=== PATIENT | male | born 1980 | race African-American/Black ===

== ENCOUNTER 2016-12-08 21:01 | Inpatient (IN) | payer OTHER ==
[~2016-12-08] VITALS: Ht 177.8 cm; Wt 93.0 kg
[~2016-12-08 21:01] MED LIST: FLUO10CA48 PO; OLAN-102 PO
[2016-12-08] MEDS ORDERED: OLAN1TAB5 PO (21:25)
[2016-12-08 21:44] LABS: BASO % 0.3 %; BASO ABS # 0.02 K/uL (0-0.2); COMPLETE YES; EOS % 1.9 %; HEMATOCRIT 39.2 % (42-52); IG% 0.2 %; LYMPH % 35.5 %; LYMPH ABS # 2.26 K/uL (1.2-3.4); MEAN CELL VOLUME 90.7 fL (80-100); MEAN CORPUSCULAR HEMOGLOBIN 30.8 pg (25-34); MEAN CORPUSCULAR HGB CONC 33.9 g/dl (32-36); MEAN PLATELET VOLUME 10.7 fL (7.4-10.4); MONO % 4.9 %; NEUT % 57.2 %; PLATELET COUNT 246 K/uL (130-400); RED BLOOD COUNT 4.32 M/uL (4.7-6.1); WHITE BLOOD COUNT 6.37 K/uL (4.8-10.8)
[2016-12-08 22:05] LABS: ACETAMINOPHEN < 2 ug/ml (10-30); BUN/CREATININE RATIO 10.2 (10-20); CALCIUM 9.2 mg/dl (8.5-10.1); CREATININE 2.5 mg/dl (0.60-1.40); POTASSIUM 4.1 mmol/L (3.5-5.1)
[2016-12-08 22:16] LABS: ALB/GLOB RATIO 0.9 (0.9-2); THYROID STIMULATING HORMONE 1.95 uIu/ml (0.300-4.500)
[2016-12-08 22:30] LABS: LITHIUM 0.3 mMOL/L (0.6-1.2)
[2016-12-08 22:53] LABS: MANUAL MICROSCOPIC REQUIRED? YES; URINE APPEARANCE CLEAR (CLEAR); URINE BILIRUBIN NEG (NEG); URINE COLOR YELLOW; URINE NITRITE NEG (NEG); UROBILINOGEN NEG (NEG)
[2016-12-08 23:01] LABS: REVIEW REQ? NO
[2016-12-08 23:03] LABS: BENZODIAZEPINE, URINE NEG (NEG); COCAINE,URINE NEG (NEG); PHENCYCLIDINE, URINE NEG (NEG)
[2016-12-08 23:12] LABS: URINE BACTERIA NEG (NEG); URINE RBC 0-4 /hpf (0-4)
[2016-12-08 23:14] LABS: ZZUR CULT IF INDIC CLEAN CATCH NO
[2016-12-08] MEDS ORDERED: SODIUM CHLORIDE 0.9% 1000ML 1,000 ML IV STA (23:52)
--- NOTE | 2016-12-09 00:01 | EMERGENCY ROOM VISIT NOTE ---
History Report prepared by Scribe: Amarilis Kwok Under the Supervision of: Dr. Jesse Kaba D.O. First contact with patient: 21:38 Chief Complaint: MENTAL HEALTH EVALUATION Stated Complaint: 302 History of Present Illness The patient is a 36 year old male who presents to the Emergency Room via police for a mental health evaluation following worsening suicidal thoughts and hearing voices with onset 1.5 hours ago. The patient states that he has been hearing voices. He states that the voices have told him to jump off of a roof. The patient states that he was arguing with his this evening when his anxiety became worse and the voices became louder. The patient hears mumbles and screaming, both male and female voices. The patient states that he has heard these voices before. The patient has been admitted for psychiatric care previously. The last time he was admitted was 4-5 hours ago. The patient states that he does not have his psychiatric medication with him; he has been in [place] for 3 days, visiting family here while he has been arguing with his . He has been staying in a hotel. Source of History: patient Onset: 1.5 hours ago Position: other (global) Quality: other (mental health evaluation) Timing: worsening Note: The patient states that he has been hearing voices. He states that the voices have told him to jump off of a roof. Review of Systems See HPI for pertinent positives & negatives. A total of 10 systems reviewed and were otherwise negative. Past Medical & Surgical Medical Problems: (1) Bipolar disorder (2) Depression (3) Schizophrenia (4) tourette's syndrome Family History Patient reports no known family medical history. Social History Smoking Status: Current Every Day Smoker Alcohol Use: occasionally Drug Use: none Marital Status: single Housing Status: other Occupation Status: unemployed, disabled Current/Historical Medications Scheduled Fluoxetine (Prozac), 10 MG PO DAILY Olanzapine (Zyprexa), 20 MG PO DAILY Allergies Coded Allergies: Alprazolam (Unverified Allergy, Intermediate, HIVES, 12/08/16) Haloperidol (Unverified Allergy, Intermediate, HIVES, 12/08/16) Methylphenidate (Unverified Allergy, Mild, 12/08/16) Physical Exam Vital Signs Date Time Temp Pulse Resp B/P Pulse Ox O2 Delivery O2 Flow Rate FiO2 12/08/16 22:25 76 18 139/96 98 Room Air 12/08/16 21:05 37.1 87 18 147/95 98 Room Air Physical Exam CONSTITUTIONAL/VITAL SIGNS: Reviewed / noted above. GENERAL: Non-toxic in appearance. INTEGUMENTARY: Warm, dry, and Nadine. HEAD: Normocephalic. EYES: without scleral icterus or trauma. ENT/OROPHARYNX: clear and moist. LYMPHADENOPATHY/NECK: Is supple without lymphadenopathy or meningismus. RESPIRATORY: Lungs clear and equal. CARDIOVASCULAR: Regular rate and rhythm. GI/ABDOMEN: Soft and nontender. No organomegaly or pulsatile mass. No rebound or guarding. Normal bowel sounds. EXTREMITIES: Warm and well perfused. BACK: No CVA tenderness. NEUROLOGICAL: Intact without focal deficits. PSYCHIATRIC: normal affect, the patient is hearing voices with suicidal ideations. MUSCULOSKELETAL: Normally developed with good muscle tone. Medical Decision & Procedures Laboratory Results 12/08/16 21:16 Red Blood Count 4.32, Mean Corpuscular Volume 90.7, Mean Corpuscular Hemoglobin 30.8, Mean Corpuscular Hemoglobin Concent 33.9, Mean Platelet Volume 10.7, Neutrophils (%) (Auto) 57.2, Lymphocytes (%) (Auto) 35.5, Monocytes (%) (Auto) 4.9, Eosinophils (%) (Auto) 1.9, Basophils (%) (Auto) 0.3, Neutrophils # (Auto) 3.65, Lymphocytes # (Auto) 2.26, Monocytes # (Auto) 0.31, Eosinophils # (Auto) 0.12, Basophils # (Auto) 0.02 12/08/16 21:16 Test 12/08/16 21:10 12/08/16 21:16 Urine Color YELLOW Urine Appearance CLEAR (CLEAR) Urine pH 6.0 (4.5-7.5) Urine Specific [place] 1.010 (1.000-1.030) Urine Protein NEG (NEG) Urine Glucose (UA) NEG (NEG) Urine Ketones NEG (NEG) Urine Occult Blood 1+ (NEG) Urine Nitrite NEG (NEG) Urine Bilirubin NEG (NEG) Urine Urobilinogen NEG (NEG) Urine Leukocyte Esterase TRACE (NEG) Urine RBC 0-4 /hpf (0-4) Urine WBC 1-5 /hpf (0-5) Urine Epithelial Cells 5-10 /lpf (0-5) Urine Bacteria NEG (NEG) Urine Opiates Screen NEG (NEG) Urine Methadone, Qualitative NEG (NEG) Urine Barbiturates NEG (NEG) Urine Phencyclidine (PCP) Level NEG (NEG) Ur Amphetamine/Methamphetamine NEG (NEG) MDMA (Ecstasy) Screen NEG (NEG) Urine Benzodiazepines Screen NEG (NEG) Urine Cocaine Metabolite NEG (NEG) Urine Marijuana (THC) NEG (NEG) White Blood Count 6.37 K/uL (4.8-10.8) Red Blood Count 4.32 M/uL (4.7-6.1) Hemoglobin 13.3 g/dL (14.0-18.0) Hematocrit 39.2 % (42-52) Mean Corpuscular Volume 90.7 fL (80-100) Mean Corpuscular Hemoglobin 30.8 pg (25-34) Mean Corpuscular Hemoglobin Concent 33.9 g/dl (32-36) Platelet Count 246 K/uL (130-400) Mean Platelet Volume 10.7 fL (7.4-10.4) Neutrophils (%) (Auto) 57.2 % Lymphocytes (%) (Auto) 35.5 % Monocytes (%) (Auto) 4.9 % Eosinophils (%) (Auto) 1.9 % Basophils (%) (Auto) 0.3 % Neutrophils # (Auto) 3.65 K/uL (1.4-6.5) Lymphocytes # (Auto) 2.26 K/uL (1.2-3.4) Monocytes # (Auto) 0.31 K/uL (0.11-0.59) Eosinophils # (Auto) 0.12 K/uL (0-0.5) Basophils # (Auto) 0.02 K/uL (0-0.2) RDW Standard Deviation 44.0 fL (36.4-46.3) RDW Coefficient of Variation 13.3 % (11.5-14.5) Immature Granulocyte % (Auto) 0.2 % Immature Granulocyte # (Auto) 0.01 K/uL (0.00-0.02) Anion Gap 10.0 mmol/L (3-11) Est Creatinine Clear Calc Drug Dose 46.8 ml/min Estimated GFR () 36.9 Estimated GFR (Non- 31.8 BUN/Creatinine Ratio 10.2 (10-20) Calcium Level 9.2 mg/dl (8.5-10.1) Total Bilirubin 0.2 mg/dl (0.2-1) Aspartate Amino Transf (AST/SGOT) 22 U/L (15-37) Alanine Aminotransferase (ALT/SGPT) 32 U/L (12-78) Alkaline Phosphatase 100 U/L (45-117) Creatine Kinase MB Ratio (0-3.0) Total Protein 7.2 gm/dl (6.4-8.2) Albumin 3.5 gm/dl (3.4-5.0) Globulin 3.7 gm/dl (2.5-4.0) Albumin/Globulin Ratio 0.9 (0.9-2) Thyroid Stimulating Hormone (TSH) 1.950 uIu/ml (0.300-4.500) Salicylates Level < 1.7 mg/dl (2.8-20) Acetaminophen Level < 2 ug/ml (10-30) [place] Level 0.3 mMOL/L (0.6-1.2) Ethyl Alcohol mg/dL < 3.0 mg/dl (0-3) Laboratory results as stated above per my review. ED Course 214: Previous medical records were reviewed. The patient was evaluated in room A8. A complete history and physical examination was performed. 2347: I discussed the case with Dr. Martines ([facility]) ; he will further evaluate the patient. Medical Decision The patient is a 36 year old male who presents to the ED for a mental health evaluation. The patient reports that he has been hearing voices in his head. The voices sometimes sound to jump off of a roof. The patient states that he recently moved to his cousin's house here in [place] as he has been having some problems with his in [place]. He has not been taking his medication for the past several days. The patient is presenting for help for his symptoms. Medically is no complaints. The patient has an unremarkable CBC. Creatinine is 2.5. 16 months ago it was 1.1. Tylenol level, salicylate level, alcohol level were negative. Tox she was negative. Chemistry panel was otherwise unremarkable. Because of the elevated creatinine, the patient will be seen by Dr. Mckeon for medical evaluation. Differential diagnosis: Etiologies such as mood disorder, infection, hypoglycemia, electrolyte abnormalities, cardiac sources, intracerebral event, toxicologic, neurologic, as well as others were entertained. Consults Time Called: [phone] Consulting Physician: Dr. Martines ([facility]) Returned Call: [phone] I discussed the case with Dr. Martines ([facility]); he will further evaluate the patient. Impression Primary Impression: Acute renal failure Additional Impressions: Auditory hallucinations Suicidal ideations Scribe Attestation The scribe's documentation has been prepared under my direction and personally reviewed by me in its entirety. I confirm that the note above accurately reflects all work, treatment, procedures, and medical decision making performed by me. Departure Information Dispostion Being Evaluated By Hospitalist Referrals No Doctor, Assigned (PCP) Patient Instructions My [facility] Problem Qualifiers
[2016-12-09 00:07] LABS: CKMB/CK RATIO 0.6 (0-3.0)
[2016-12-09] MEDS ORDERED: ACETAMINOPHEN 325 MG TAB PO PRN ×2 (00:30)
[2016-12-09] MEDS ORDERED: ONDANSETRON INJ 2 MG/ML 2 ML VIAL IV PRN (00:30)
[2016-12-09] MEDS ORDERED: DiphenhydrAMINE HCL 50 MG/ML VIAL IV PRN (00:30)
[2016-12-09] MEDS ORDERED: MAGNESIUM HYDROXIDE SUSP 30 ML UDC PO PRN (00:30)
[2016-12-09] MEDS ORDERED: ZOLPIDEM TARTRATE 5 MG TAB PO PRN ×2 (00:30)
--- NOTE | 2016-12-09 00:51 | History and Physical ---
History & Physical Date & Time of Service: Dec 09, 2016 at 00:43 Chief Complaint: 302 Primary Care Physician: No Doctor, Assigned History of Present Illness Source: patient, hospital records The patient is a 36-year-old male who presents to the emergency department via police for mental health evaluation due to hearing voices and worsening suicidal thoughts some began about one half hours prior to arrival. The patient reports he was anxious arguing with his earlier in the evening, and this made his anxiety get worse, and the voices became latter told him to jump off a roof. He has heard these same voices before, and reports that they have both male and female. Last time he was admitted for psychiatry care was for the 5 years ago. He has been in [place] for 3 days while visiting family, and is staying at a local hotel. Past Medical/Surgical History Medical Problems: (1) Bipolar disorder Status: Chronic (2) Depression Status: Chronic (3) Schizophrenia Status: Chronic (4) tourette's syndrome Status: Chronic Family History Patient reports no known family medical history. Social History Smoking Status: Current Every Day Smoker Smokeless Tobacco Use: No Drug Use: none Marital Status: single Housing status: lives with friends Occupational Status: unemployed, disabled Immunizations History of Influenza Vaccine: Yes History of Tetanus Vaccine?: Yes History of Pneumococcal: Yes History of Hepatitis B Vaccine: Yes Multi-Drug Resistant Organisms History of MDRO: No Allergies Coded Allergies: Alprazolam (Unverified Allergy, Intermediate, HIVES, 12/08/16) Haloperidol (Unverified Allergy, Intermediate, HIVES, 12/08/16) Methylphenidate (Unverified Allergy, Mild, 12/08/16) Home Medications Scheduled Fluoxetine (Prozac), 10 MG PO DAILY Olanzapine (Zyprexa), 20 MG PO DAILY Review of Systems The patient denies chest pain, palpitations, shortness of breath, cough, lower extremity swelling, vision change, hearing change, sore throat, fevers, chills, sweats, weight change, fatigue, nausea, vomiting, abdominal pain, pelvic pain, blood in urine or stool, dysuria, urinary frequency or urgency, lightheadedness , dizziness, headache, memory loss, rash, abnormal bruising or bleeding, imbalance, focal or generalized weakness, numbness or tingling in arms or legs, arthralgias or myalgias, back or neck pain, night sweats, or allergy symptoms. The review of systems is otherwise negative other than for that already noted above, and at least 10 systems have been reviewed. Physical Exam Vital Signs Date Time Temp Pulse Resp B/P Pulse Ox O2 Delivery O2 Flow Rate FiO2 12/09/16 00:20 73 18 135/91 97 Room Air 12/08/16 22:25 76 18 139/96 98 Room Air 12/08/16 21:05 37.1 87 18 147/95 98 Room Air The patient is awake, well-developed and adequately nourished, alert and oriented 3, normocephalic and atraumatic, lying in bed and in no acute distress. HEENT--PERRL, EOMI, mucous membranes and oropharynx moist. Neck--supple, no JVD or bruits, thyroid normal, trachea midline, no adenopathy. Heart--normal S1 and S2, no extra beats, no murmurs, rubs or gallops. Lungs--clear bilaterally with good air movement, no respiratory distress, no accessory muscle use. Abdomen--normal bowel sounds and soft, nontender and nondistended, no hernias or masses, no organomegaly. Extremities--no cyanosis, clubbing or edema. There are good distal pulses b/l. Dermatologic--normal skin turgor, normal color, warm and dry, no abnormal lymph nodes, no rash. Neurologic--cranial nerves II through XII grossly intact, motor and sensory examination normal. Rheumatologic--normal range of motion, nontender, muscles and joints. Psychiatric--normal affect. Diagnostics Laboratory Results Results Past 24 Hours Test 12/08/16 21:10 12/08/16 21:16 Range/Units Urine Color YELLOW Urine Appearance CLEAR CLEAR Urine pH 6.0 4.5-7.5 Urine Specific [place] 1.010 1.000-1.030 Urine Protein NEG NEG Urine Glucose (UA) NEG NEG Urine Ketones NEG NEG Urine Occult Blood 1+ NEG Urine Nitrite NEG NEG Urine Bilirubin NEG NEG Urine Urobilinogen NEG NEG Urine Leukocyte Esterase TRACE NEG Urine RBC 0-4 0-4 /hpf Urine WBC 1-5 0-5 /hpf Urine Epithelial Cells 5-10 0-5 /lpf Urine Bacteria NEG NEG Urine Opiates Screen NEG NEG Urine Methadone, Qualitative NEG NEG Urine Barbiturates NEG NEG Urine Phencyclidine (PCP) Level NEG NEG Ur Amphetamine/Methamphetamine NEG NEG MDMA (Ecstasy) Screen NEG NEG Urine Benzodiazepines Screen NEG NEG Urine Cocaine Metabolite NEG NEG Urine Marijuana (THC) NEG NEG White Blood Count 6.37 4.8-10.8 K/uL Red Blood Count 4.32 4.7-6.1 M/uL Hemoglobin 13.3 14.0-18.0 g/dL Hematocrit 39.2 42-52 % Mean Corpuscular Volume 90.7 80-100 fL Mean Corpuscular Hemoglobin 30.8 25-34 pg Mean Corpuscular Hemoglobin Concent 33.9 32-36 g/dl Platelet Count 246 130-400 K/uL Mean Platelet Volume 10.7 7.4-10.4 fL Neutrophils (%) (Auto) 57.2 % Lymphocytes (%) (Auto) 35.5 % Monocytes (%) (Auto) 4.9 % Eosinophils (%) (Auto) 1.9 % Basophils (%) (Auto) 0.3 % Neutrophils # (Auto) 3.65 1.4-6.5 K/uL Lymphocytes # (Auto) 2.26 1.2-3.4 K/uL Monocytes # (Auto) 0.31 0.11-0.59 K/uL Eosinophils # (Auto) 0.12 0-0.5 K/uL Basophils # (Auto) 0.02 0-0.2 K/uL RDW Standard Deviation 44.0 36.4-46.3 fL RDW Coefficient of Variation 13.3 11.5-14.5 % Immature Granulocyte % (Auto) 0.2 % Immature Granulocyte # (Auto) 0.01 0.00-0.02 K/uL Sodium Level 141 136-145 mmol/L Potassium Level 4.1 3.5-5.1 mmol/L Chloride Level 107 98-107 mmol/L Carbon Dioxide Level 24 21-32 mmol/L Anion Gap 10.0 3-11 mmol/L Blood Urea Nitrogen 26 7-18 mg/dl Creatinine 2.50 0.60-1.40 mg/dl Est Creatinine Clear Calc Drug Dose 46.8 ml/min Estimated GFR () 36.9 Estimated GFR (Non- 31.8 BUN/Creatinine Ratio 10.2 10-20 Random Glucose 113 70-99 mg/dl Calcium Level 9.2 8.5-10.1 mg/dl Total Bilirubin 0.2 0.2-1 mg/dl Aspartate Amino Transf (AST/SGOT) 22 15-37 U/L Alanine Aminotransferase (ALT/SGPT) 32 12-78 U/L Alkaline Phosphatase 100 45-117 U/L Total Creatine Kinase 479 39-308 U/L Creatine Kinase MB 2.9 0.5-3.6 ng/ml Creatine Kinase MB Ratio 0.6 0-3.0 Total Protein 7.2 6.4-8.2 gm/dl Albumin 3.5 3.4-5.0 gm/dl Globulin 3.7 2.5-4.0 gm/dl Albumin/Globulin Ratio 0.9 0.9-2 Thyroid Stimulating Hormone (TSH) 1.950 0.300-4.500 uIu/ml Salicylates Level < 1.7 2.8-20 mg/dl Acetaminophen Level < 2 10-30 ug/ml [place] Level 0.3 0.6-1.2 mMOL/L Ethyl Alcohol mg/dL < 3.0 0-3 mg/dl Impression Assessment and Plan Renal insufficiency of unknown duration/mild rhabdomyolysis--patient's creatinine upon admission was 2.50, and CK was 479, with no previous laboratories on file. He is to be admitted to the mental health unit however, psychiatry will have asked that his renal function be assessed before they could accept him. Therefore, the patient will be admitted to the medical service and undergo workup. He'll placed on normal saline at 100 ML's per hour , and will get a renal ultrasound. We'll also consult nephrology to expedite his assessment. Bipolar disorder/depression/schizophrenia/Tourette syndrome/suicidal ideation-- continue current dosing of fluoxetine 10 mg by mouth daily and olanzapine 20 mg by mouth daily. We'll consult psychiatry to follow the patient, and when medical workup is complete, the patient be admitted to the psychiatry service. Tobacco use disorder--patient has no pulmonary symptoms at this point. If he becomes symptomatic, a NicoDerm patch can be prescribed at that time. Level of Care Med/Surg Advanced Directives Existing Advance Directive: No Existing Living Will: No Existing Power of Locomotive Oiler: No Resuscitation Status FULL RESUSCITATION VTE Prophylaxis VTE Risk Assessment Done? Y/N: Yes Risk Level: Moderate Given or contraindicated: SCD's
[2016-12-09] MEDS: SODIUM CHLORIDE 0.9% 1000ML 1,000 ML IV SCH ×4 (01:45→22:09)
[2016-12-09 02:05] VITALS: BP 135/91; PULSE 73; TEMP 37.1; Ht 177.8 cm; Wt 93.0 kg
[2016-12-09 04:00] VITALS: O2SAT 97
[2016-12-09 07:55] VITALS: BP 110/70; PULSE 69; TEMP 36.6; O2SAT 97
[2016-12-09] MEDS ORDERED: INFLUENZA ADMINISTRATION CHARGE ONE (08:00)
[2016-12-09] MEDS ORDERED: INFLUENZA VIRUS QUAD VACCINE 0.5 ML SYR IM. ONE (08:00)
--- NOTE | 2016-12-09 08:04 | DIAGNOSTIC IMAGING REPORT ---
RENAL ULTRASOUND CLINICAL HISTORY: Renal insufficiency COMPARISON STUDY: None. TECHNIQUE: Sonography of the kidneys and the urinary bladder was performed. FINDINGS: The right kidney measures 10.1 x 5.9 x 5.6 cm and the left measures 11.2 x 5.6 x 5.4 cm. There is no hydronephrosis. Renal echogenicity, size and cortical thickness are normal. The left ureteral jet was not visualized. The bladder was otherwise unremarkable. IMPRESSION: Unremarkable sonographic appearance of the kidneys. No hydronephrosis. Electronically signed by: Justen Overton M.D. 12/09/2016 8:03 AM Dictated Date/Time: 12/09/2016 8:02 AM
[2016-12-09] MEDS: FLUOXETINE HCL 10 MG CAP PO SCH (08:22)
[2016-12-09] MEDS: OLANZAPINE 20 MG TAB PO SCH (08:22)
[2016-12-09 11:42] LABS: BUN/CREATININE RATIO 10.4 (10-20); CALCIUM 8.8 mg/dl (8.5-10.1); CREATININE 2.2 mg/dl (0.60-1.40); POTASSIUM 4.3 mmol/L (3.5-5.1)
--- NOTE | 2016-12-09 14:17 | Progress Note ---
Progress Note Chart reviewed. Patient sleeping - arousable but falls asleep. unable to hold conversation Noted BMP - increased IVF to 175ml/Hr nephrology consult added
--- NOTE | 2016-12-09 14:26 | Psych Management Progress Note ---
Psychiatry Miscellaneous Date of Service: Dec 09, 2016. Attempted to see patient to complete consult, he was only cooperative for first few minutes of assessment as he thought I was the doctor that would be medically clearing him. He isn't able to give a very detailed psychiatric history, unclear if avoiding details. States he hasn't taken meds for a few days as they are home with his in [place]. He started feeling anxious, denies suicidal thoughts currently but states that he was having them last pm due to anxiety/fight with and now just wants to leave as feels better on medication. He slept most of shift per 1-on-1 in room. States he takes meds for tourette's and maybe schizophrenia and then asked to end the interview. Reviewed with him that to be able to safety plan that our service will need to gather more history and he directed me to call his . I personally haven't seen rhabdo as a side effect of Zyprexa and he was actually off meds for a few days which would argue against NMS. His tox screen is negative and there was no ETOH in his system but I guess without more explanation of his activities of the past 3 days that he may have been passed out for a bit before coming to ED, perhaps some of his presentation could be withdrawal, vitals currently stable. CPK is improved but Cr still elevated. would need additional history from patient and a family member to determine need for involuntary commitment. Past on statements in ED last pm, until this is clarified, would support holding patient on a 302 warrant if necessary rather than allowing AMA discharge.
[2016-12-09 14:59] VITALS: BP 130/72; PULSE 83; TEMP 36.8; O2SAT 97
--- NOTE | 2016-12-09 15:56 | Psychiatric Consultation ---
Consultation Identifying Data 36 yo male, admit for rhabdo with acute renal issues (Cr 2.5), unexplained. Patient states he is and from [facility] but overall was tired and not particularly cooperative with exam. Chief Complaint "I'm not suicidal". History of Present Illness presented to ED last pm with SI with plan, increase in anxiety following argument with his . Sketchy on details of what he has been doing in the area, reportedly staying in a hotel for a few days. He denies substance use. Last ED contact was 2014--made similar statements about [facility] and admit to [facility] from there. On review of chart, last contact with consult service was 2011--noted history of malingering. Admission here in 2011 also noted denied suicidal thoughts after got warm, fed/slept. Past Psychiatric History Current OP Treatment: psychiatrist (he cannot name, last listed on chart Dr. Lopez in [facility] though now reports lives in [place]) difficult to confirm actual history of attempts as history is unreliable, 12-15 ED contacts since 2011 for varying reports of psych symptoms. Last contact as above 08/11 [facility] admit. other meds last hospitalization here Abilify, most chart notes refer to Zyprexa and Prozac. Past Medical/Surgical History Problem List: (1) Acute renal failure (2) tourette's syndrome Allergies Allergies: Coded Allergies: Alprazolam (Unverified Allergy, Intermediate, HIVES, 12/08/16) Haloperidol (Unverified Allergy, Intermediate, HIVES, 12/08/16) Methylphenidate (Unverified Allergy, Mild, 12/08/16) Home Medications Scheduled Fluoxetine (Prozac), 10 MG PO DAILY Olanzapine (Zyprexa), 20 MG PO DAILY Family History Patient reports no known family medical history. Alcohol Use Alcohol Use In Past 12 Months: No Substance History denies, tox negative Personal History Work History: disabled Relationship History: (to Briseyda, no answer on contact number) Additional Comments: patient was not cooperative with social history. Review of Systems patient unable to complete other than "I need to pee" and sleep Examination Vital Signs Vital Signs Past 12 Hours Date Time Temp Pulse Resp B/P Pulse Ox O2 Delivery O2 Flow Rate FiO2 12/09/16 14:59 36.8 83 18 130/72 97 Room Air 12/09/16 08:00 Room Air 12/09/16 07:55 36.6 69 17 110/70 97 Room Air 12/09/16 04:00 97 Room Air Laboratory Results Last 24 Hours Test 12/08/16 21:10 12/08/16 21:16 12/09/16 10:55 Urine Color YELLOW Urine Appearance CLEAR Urine pH 6.0 Urine Specific [place] 1.010 Urine Protein NEG Urine Glucose (UA) NEG Urine Ketones NEG Urine Occult Blood 1+ Urine Nitrite NEG Urine Bilirubin NEG Urine Urobilinogen NEG Urine Leukocyte Esterase TRACE Urine RBC 0-4 /hpf Urine WBC 1-5 /hpf Urine Epithelial Cells 5-10 /lpf Urine Bacteria NEG Urine Opiates Screen NEG Urine Methadone, Qualitative NEG Urine Barbiturates NEG Urine Phencyclidine (PCP) Level NEG Ur Amphetamine/Methamphetamine NEG MDMA (Ecstasy) Screen NEG Urine Benzodiazepines Screen NEG Urine Cocaine Metabolite NEG Urine Marijuana (THC) NEG White Blood Count 6.37 K/uL Red Blood Count 4.32 M/uL Hemoglobin 13.3 g/dL Hematocrit 39.2 % Mean Corpuscular Volume 90.7 fL Mean Corpuscular Hemoglobin 30.8 pg Mean Corpuscular Hemoglobin Concent 33.9 g/dl Platelet Count 246 K/uL Mean Platelet Volume 10.7 fL Neutrophils (%) (Auto) 57.2 % Lymphocytes (%) (Auto) 35.5 % Monocytes (%) (Auto) 4.9 % Eosinophils (%) (Auto) 1.9 % Basophils (%) (Auto) 0.3 % Neutrophils # (Auto) 3.65 K/uL Lymphocytes # (Auto) 2.26 K/uL Monocytes # (Auto) 0.31 K/uL Eosinophils # (Auto) 0.12 K/uL Basophils # (Auto) 0.02 K/uL RDW Standard Deviation 44.0 fL RDW Coefficient of Variation 13.3 % Immature Granulocyte % (Auto) 0.2 % Immature Granulocyte # (Auto) 0.01 K/uL Sodium Level 141 mmol/L 144 mmol/L Potassium Level 4.1 mmol/L 4.3 mmol/L Chloride Level 107 mmol/L 112 mmol/L Carbon Dioxide Level 24 mmol/L 24 mmol/L Anion Gap 10.0 mmol/L 8.0 mmol/L Blood Urea Nitrogen 26 mg/dl 23 mg/dl Creatinine 2.50 mg/dl 2.20 mg/dl Est Creatinine Clear Calc Drug Dose 46.8 ml/min 53.2 ml/min Estimated GFR () 36.9 43.1 Estimated GFR (Non- 31.8 37.2 BUN/Creatinine Ratio 10.2 10.4 Random Glucose 113 mg/dl 111 mg/dl Calcium Level 9.2 mg/dl 8.8 mg/dl Total Bilirubin 0.2 mg/dl Aspartate Amino Transf (AST/SGOT) 22 U/L Alanine Aminotransferase (ALT/SGPT) 32 U/L Alkaline Phosphatase 100 U/L Total Creatine Kinase 479 U/L 297 U/L Creatine Kinase MB 2.9 ng/ml Creatine Kinase MB Ratio 0.6 Total Protein 7.2 gm/dl Albumin 3.5 gm/dl Globulin 3.7 gm/dl Albumin/Globulin Ratio 0.9 Thyroid Stimulating Hormone (TSH) 1.950 uIu/ml Salicylates Level < 1.7 mg/dl Acetaminophen Level < 2 ug/ml [place] Level 0.3 mMOL/L Ethyl Alcohol mg/dL < 3.0 mg/dl Mental Examination During interview pt is: uncooperative Appearance: disheveled Eye contact is: poor Motor behavior is: no abnormal motor movements Speech: other (nonspontaneous) Affect: blunted Mood is: other ("I'm fine now") Thought process: concrete Thought content: reality based without delusions Suicidal thought are: denied Homicidal thoughts are: denied Hallucinations: denies auditory, denies visual Cognition: other (attention decreased) Intelligence estimated to be: below average Insight: poor Judgement: poor Impression / Recommendations Impression 36 yo male with history of psychotic diagnosis but also malingering presented to ED last pm reporting SI with plan, currently denying. No collateral history available. Recommendations liason to attempt to engage and/or local family member for additional history re: his behavior Cr remains significantly elevated concerns would be lack of psych f/u and safety plan, regardless of history it has been several years since his last contact at [facility] and he was admitted with a significant health concern which may be related to poor self care he will need to be more fully assessed before a decision can be made about involuntary commitment.
--- NOTE | 2016-12-09 16:10 | Nephrology Consultation ---
Nephrology Consultation Date & Providers Date of Consultation: Dec 09, 2016. Primary Care Provider: No Doctor, Assigned Referring Provider: Reason for Consultation Renal insufficiency History of Present Illness Mr. Joe Alford is a 36 year-old male who voluntarily presented to [facility] yesterday with active psychosis. He was hearing voices that were reportedly encouraging him to hurt himself. At the present time, he denies any suicidal thoughts. Mr. Alford provided a limited history. He stated that he is too tired and it is difficult for him to remember a lot details. He would frequently close his eyes and not answer questions. He reports significant recent stress and emotional fatigue from auditory hallucinations. He is visiting family is [place]. He lives in [place], [place] with his . He does follow with a psychiatrist in [place]. Documentation in the medical record reports a history of schizophrenia, depression and Tourette's. There are no records available for review from his psychiatrist at this time. He was reportedly admitted to an inpatient psychiatric facility approximately 5 years ago. He does not have a primary care physician. He denies any history of kidney disease. He does not have hypertension or diabetes. There is no family history of kidney disease. Joe denied any illicit substance abuse. He denies any recent NSAID or other OTC medication use. He had been maintained on Zyprexa but had not taken any medications in at least 4 days. He states that there is a period of time that he cannot remember at all from within 24 hours of the hospitalization. He believes that he was asleep or unconscious during this time. He has no urinary complaints. He had frequent loose stool approximately 72 hours prior to hospitalization. This has resolved. He denies abdominal pain. He denies nausea or vomiting. Appetite is good. Medical record reports a serum creatinine of 1.1 mg/dL 16 months ago. There are no other records or more recent laboratory studies for review. Past Medical/Surgical History Medical: Bipolar disorder, schizophrenia, depression, and Tourette's syndrome. Surgical: None reported Allergies Coded Allergies: Alprazolam (Unverified Allergy, Intermediate, HIVES, 12/08/16) Haloperidol (Unverified Allergy, Intermediate, HIVES, 12/08/16) Methylphenidate (Unverified Allergy, Mild, 12/08/16) Inpatient Medications Current Inpatient Medications Medications (Trade) Dose Ordered Sig/Jean Carlos Route Start Time Stop Time Status Last Admin Dose Admin Acetaminophen (Tylenol Tab) 650 mg Q4H PRN PO 12/09/16 00:30 01/08/17 00:29 Zolpidem Tartrate (Ambien Tab) 5 mg HSZ PRN PO 12/09/16 00:30 01/08/17 00:29 Fluoxetine HCl (Prozac Cap) 10 mg DAILY PO 12/09/16 09:00 01/08/17 08:59 12/09/16 08:22 10 MG Olanzapine (Zyprexa Tab) 20 mg DAILY PO 12/09/16 09:00 01/08/17 08:59 12/09/16 08:22 20 MG Magnesium Hydroxide (Milk Of Magnesia Susp) 30 ml Q6H PRN PO 12/09/16 00:30 01/08/17 00:29 Diphenhydramine HCl (Benadryl Inj) 25 mg Q4H PRN IV 12/09/16 00:30 01/08/17 00:29 Ondansetron HCl 4 mg 4 mg Q6H PRN IV 12/09/16 00:30 01/08/17 00:29 Sodium Chloride (Nss 1000ml) 1,000 ml @ 175 mls/hr Q5H43M IV 12/09/16 01:45 01/08/17 01:44 12/09/16 10:47 175 MLS/HR Family History Patient reports no known family medical history. Social History Smoking Status: Current Every Day Smoker Smokeless Tobacco Use: No Drug Use: none Marital Status: single Housing Status: lives with friends Occupation: unemployed, disabled Review of Systems A complete review of systems was performed. Pertinent positives are noted above. All other systems are negative. Physical Exam Date Time Temp Pulse Resp B/P Pulse Ox O2 Delivery O2 Flow Rate FiO2 12/09/16 14:59 36.8 83 18 130/72 97 Room Air 12/09/16 08:00 Room Air 12/09/16 07:55 36.6 69 17 110/70 97 Room Air 12/09/16 04:00 97 Room Air 12/09/16 02:05 37.1 73 18 135/91 Room Air 12/09/16 00:20 73 18 135/91 97 Room Air 12/08/16 22:25 76 18 139/96 98 Room Air 12/08/16 21:05 37.1 87 18 147/95 98 Room Air General Appearance: WD/WN, no apparent distress Head: normocephalic, atraumatic Eyes: normal inspection, sclerae normal ENT: normal ENT inspection, pharynx normal Neck: supple, no JVD Respiratory/Chest: lungs clear, no respiratory distress, no accessory muscle use Cardiovascular: regular rate, rhythm, no gallop, no murmur Abdomen/GI: non tender, soft Back: normal inspection, no CVA tenderness Extremities/Musculoskelatal: normal inspection, no pedal edema Neurologic/Psych: alert, + depressed affect Skin: normal color Laboratory Results Last 24 Hours Test 12/08/16 21:10 12/08/16 21:16 12/09/16 10:55 Urine Color YELLOW Urine Appearance CLEAR Urine pH 6.0 Urine Specific [place] 1.010 Urine Protein NEG Urine Glucose (UA) NEG Urine Ketones NEG Urine Occult Blood 1+ Urine Nitrite NEG Urine Bilirubin NEG Urine Urobilinogen NEG Urine Leukocyte Esterase TRACE Urine RBC 0-4 /hpf Urine WBC 1-5 /hpf Urine Epithelial Cells 5-10 /lpf Urine Bacteria NEG Urine Opiates Screen NEG Urine Methadone, Qualitative NEG Urine Barbiturates NEG Urine Phencyclidine (PCP) Level NEG Ur Amphetamine/Methamphetamine NEG MDMA (Ecstasy) Screen NEG Urine Benzodiazepines Screen NEG Urine Cocaine Metabolite NEG Urine Marijuana (THC) NEG White Blood Count 6.37 K/uL Red Blood Count 4.32 M/uL Hemoglobin 13.3 g/dL Hematocrit 39.2 % Mean Corpuscular Volume 90.7 fL Mean Corpuscular Hemoglobin 30.8 pg Mean Corpuscular Hemoglobin Concent 33.9 g/dl Platelet Count 246 K/uL Mean Platelet Volume 10.7 fL Neutrophils (%) (Auto) 57.2 % Lymphocytes (%) (Auto) 35.5 % Monocytes (%) (Auto) 4.9 % Eosinophils (%) (Auto) 1.9 % Basophils (%) (Auto) 0.3 % Neutrophils # (Auto) 3.65 K/uL Lymphocytes # (Auto) 2.26 K/uL Monocytes # (Auto) 0.31 K/uL Eosinophils # (Auto) 0.12 K/uL Basophils # (Auto) 0.02 K/uL RDW Standard Deviation 44.0 fL RDW Coefficient of Variation 13.3 % Immature Granulocyte % (Auto) 0.2 % Immature Granulocyte # (Auto) 0.01 K/uL Sodium Level 141 mmol/L 144 mmol/L Potassium Level 4.1 mmol/L 4.3 mmol/L Chloride Level 107 mmol/L 112 mmol/L Carbon Dioxide Level 24 mmol/L 24 mmol/L Anion Gap 10.0 mmol/L 8.0 mmol/L Blood Urea Nitrogen 26 mg/dl 23 mg/dl Creatinine 2.50 mg/dl 2.20 mg/dl Est Creatinine Clear Calc Drug Dose 46.8 ml/min 53.2 ml/min Estimated GFR () 36.9 43.1 Estimated GFR (Non- 31.8 37.2 BUN/Creatinine Ratio 10.2 10.4 Random Glucose 113 mg/dl 111 mg/dl Calcium Level 9.2 mg/dl 8.8 mg/dl Total Bilirubin 0.2 mg/dl Aspartate Amino Transf (AST/SGOT) 22 U/L Alanine Aminotransferase (ALT/SGPT) 32 U/L Alkaline Phosphatase 100 U/L Total Creatine Kinase 479 U/L 297 U/L Creatine Kinase MB 2.9 ng/ml Creatine Kinase MB Ratio 0.6 Total Protein 7.2 gm/dl Albumin 3.5 gm/dl Globulin 3.7 gm/dl Albumin/Globulin Ratio 0.9 Thyroid Stimulating Hormone (TSH) 1.950 uIu/ml Salicylates Level < 1.7 mg/dl Acetaminophen Level < 2 ug/ml [place] Level 0.3 mMOL/L Ethyl Alcohol mg/dL < 3.0 mg/dl Impression (1) Acute renal failure Recommendations Mr. Joe Alford is a 36 year-old male with renal insufficiency.. The acuity of his LAUREN is not clear at this time. Medical history recorded includes bipolar disorder, schizophrenia, depression and Tourette's syndrome. He was maintained on fluoxetine and Zyprexa. He denies taking any medications for at least 4 days prior to admission. Creatinine was 2.5 mg/dL yesterday and it is 2.2 mg/dL today. It was reportedly 1.1 mg/dL approximately 16 months ago. Blood pressure and volume status appear appropriate. No significant NSAID use. Metabolic profile is otherwise normal. CPK was mildly elevated at ~460 on admission. This is improving with IVF. Renal ultrasound revealed a 10.1 cm right kidney and 11.2 cm left kidney. Kidneys are normal in appearance. Urine analysis notable for occult blood with 0-4 RBC/hpf on microscopy. UA/microscopy otherwise unremarkable. The chronicity of renal failure is unclear. A CPK less than 500 would not typically cause pigment nephropathy but we cannot exclude that it may have been higher in the past. Zyprexa or seizure may cause CPK elevation but overall three is little evidence to endorse changes in management or additional evaluation at this time. Joe endorses some recent loose stool. He denies any recent myalgias or fevers or chills. I suspect LAUREN may be a manifestation of prerenal azotemia which may be improving. I'd suggest continuing IVF with normal saline @ 150 ml/hr overnight and checking a metabolic profile in the morning. No additional work up is necessary at this time. Joe denies any blood work in the past year. He is interested in additional psychiatric care upon discharge from the hospital.
[2016-12-09 23:15] VITALS: BP_SYST 129; BP_SYST 152; BP_DIAS 78; BP_DIAS 81; PULSE 83; PULSE 86; TEMP 36.5; TEMP 37; O2SAT 94; O2SAT 97
[2016-12-10] MEDS: SODIUM CHLORIDE 0.9% 1000ML 1,000 ML IV SCH ×3 (04:01→15:51)
[2016-12-10 05:50] LABS: BASO % 0.6 %; BASO ABS # 0.03 K/uL (0-0.2); COMPLETE YES; EOS % 2.9 %; HEMATOCRIT 36.9 % (42-52); IG% 0.2 %; LYMPH % 44.6 %; LYMPH ABS # 2.12 K/uL (1.2-3.4); MEAN CELL VOLUME 89.8 fL (80-100); MEAN CORPUSCULAR HEMOGLOBIN 29.7 pg (25-34); MEAN CORPUSCULAR HGB CONC 33.1 g/dl (32-36); MEAN PLATELET VOLUME 10.3 fL (7.4-10.4); MONO % 7.4 %; NEUT % 44.3 %; PLATELET COUNT 191 K/uL (130-400); RED BLOOD COUNT 4.11 M/uL (4.7-6.1); WHITE BLOOD COUNT 4.75 K/uL (4.8-10.8)
[2016-12-10 06:22] LABS: BUN/CREATININE RATIO 9.2 (10-20); CALCIUM 8.2 mg/dl (8.5-10.1); POTASSIUM 4.6 mmol/L (3.5-5.1)
[2016-12-10 07:30] VITALS: BP 135/88; PULSE 71; TEMP 36.4; O2SAT 20
[2016-12-10] MEDS: FLUOXETINE HCL 10 MG CAP PO SCH (07:41)
[2016-12-10] MEDS: OLANZAPINE 20 MG TAB PO SCH (07:41)
--- NOTE | 2016-12-10 08:49 | Nephrology Progress Note ---
Nephrology Progress Note Date of Service Dec 10, 2016. Review of Systems A complete review of systems was performed. Pertinent positives are noted above. All other systems are negative. Vital Signs Last 8 Hrs Date Time Temp Pulse Resp B/P Pulse Ox O2 Delivery O2 Flow Rate FiO2 12/10/16 08:00 Room Air 12/10/16 07:30 36.4 71 20 135/88 20 Room Air I & O 24-Hour Column 12/10/16 08:00 Intake Total 6002 ml Output Total 6175 ml Balance -173 ml Last Recorded Weight Weight (Kilograms): 93.000 Family History Patient reports no known family medical history. Social History Smoking Status: Current every day smoker Smokeless Tobacco Use: No Drug Use: none Marital Status: single Housing Status: lives with friends Occupation: unemployed, disabled Laboratory Results Past 24 Hours 12/10/16 05:22 Red Blood Count 4.11, Mean Corpuscular Volume 89.8, Mean Corpuscular Hemoglobin 29.7, Mean Corpuscular Hemoglobin Concent 33.1, Mean Platelet Volume 10.3, Neutrophils (%) (Auto) 44.3, Lymphocytes (%) (Auto) 44.6, Monocytes (%) (Auto) 7.4, Eosinophils (%) (Auto) 2.9, Basophils (%) (Auto) 0.6, Neutrophils # (Auto) 2.10, Lymphocytes # (Auto) 2.12, Monocytes # (Auto) 0.35, Eosinophils # (Auto) 0.14, Basophils # (Auto) 0.03 12/09/16 10:55 12/10/16 05:22 Test 12/09/16 10:55 12/10/16 05:22 Anion Gap 8.0 mmol/L (3-11) 10.0 mmol/L (3-11) Est Creatinine Clear Calc Drug Dose 53.2 ml/min 58.5 ml/min Estimated GFR () 43.1 48.3 Estimated GFR (Non- 37.2 41.7 BUN/Creatinine Ratio 10.4 (10-20) 9.2 (10-20) Calcium Level 8.8 mg/dl (8.5-10.1) 8.2 mg/dl (8.5-10.1) Total Creatine Kinase 297 U/L (39-308) White Blood Count 4.75 K/uL (4.8-10.8) Red Blood Count 4.11 M/uL (4.7-6.1) Hemoglobin 12.2 g/dL (14.0-18.0) Hematocrit 36.9 % (42-52) Mean Corpuscular Volume 89.8 fL (80-100) Mean Corpuscular Hemoglobin 29.7 pg (25-34) Mean Corpuscular Hemoglobin Concent 33.1 g/dl (32-36) Platelet Count 191 K/uL (130-400) Mean Platelet Volume 10.3 fL (7.4-10.4) Neutrophils (%) (Auto) 44.3 % Lymphocytes (%) (Auto) 44.6 % Monocytes (%) (Auto) 7.4 % Eosinophils (%) (Auto) 2.9 % Basophils (%) (Auto) 0.6 % Neutrophils # (Auto) 2.10 K/uL (1.4-6.5) Lymphocytes # (Auto) 2.12 K/uL (1.2-3.4) Monocytes # (Auto) 0.35 K/uL (0.11-0.59) Eosinophils # (Auto) 0.14 K/uL (0-0.5) Basophils # (Auto) 0.03 K/uL (0-0.2) RDW Standard Deviation 43.5 fL (36.4-46.3) RDW Coefficient of Variation 13.2 % (11.5-14.5) Immature Granulocyte % (Auto) 0.2 % Immature Granulocyte # (Auto) 0.01 K/uL (0.00-0.02) Magnesium Level 2.0 mg/dl (1.8-2.4) Allergies Coded Allergies: Alprazolam (Unverified Allergy, Intermediate, HIVES, 12/08/16) Haloperidol (Unverified Allergy, Intermediate, HIVES, 12/08/16) Methylphenidate (Unverified Allergy, Mild, 12/08/16) Medications Current Inpatient Medications Medications (Trade) Dose Ordered Sig/Jean Carlos Route Start Time Stop Time Status Last Admin Dose Admin Acetaminophen (Tylenol Tab) 650 mg Q4H PRN PO 12/09/16 00:30 01/08/17 00:29 Fluoxetine HCl (Prozac Cap) 10 mg DAILY PO 12/09/16 09:00 01/08/17 08:59 12/10/16 07:41 10 MG Olanzapine (Zyprexa Tab) 20 mg DAILY PO 12/09/16 09:00 01/08/17 08:59 12/10/16 07:41 20 MG Magnesium Hydroxide (Milk Of Magnesia Susp) 30 ml Q6H PRN PO 12/09/16 00:30 01/08/17 00:29 Diphenhydramine HCl (Benadryl Inj) 25 mg Q4H PRN IV 12/09/16 00:30 01/08/17 00:29 Ondansetron HCl 4 mg 4 mg Q6H PRN IV 12/09/16 00:30 01/08/17 00:29 Sodium Chloride (Nss 1000ml) 1,000 ml @ 175 mls/hr Q5H43M IV 12/09/16 01:45 01/08/17 01:44 12/10/16 04:01 175 MLS/HR Impression (1) Acute renal failure Recommendations Mr. Joe Alford is a 36 year-old male with renal insufficiency.. The acuity of his LAUREN is not clear at this time. Medical history recorded includes bipolar disorder, schizophrenia, depression and Tourette's syndrome. He was maintained on fluoxetine and Zyprexa. He denies taking any medications for at least 4 days prior to admission. Creatinine was 2.5 mg/dL yesterday and it is 2.2 mg/dL today. It was reportedly 1.1 mg/dL approximately 16 months ago. Blood pressure and volume status appear appropriate. No significant NSAID use. Metabolic profile is otherwise normal. CPK was mildly elevated at ~460 on admission. This is improving with IVF. Renal ultrasound revealed a 10.1 cm right kidney and 11.2 cm left kidney. Kidneys are normal in appearance. Urine analysis notable for occult blood with 0-4 RBC/hpf on microscopy. UA/microscopy otherwise unremarkable. The chronicity of renal failure is unclear. A CPK less than 500 would not typically cause pigment nephropathy but we cannot exclude that it may have been higher in the past. Zyprexa or seizure may cause CPK elevation but overall three is little evidence to endorse changes in management or additional evaluation at this time. Joe endorses some recent loose stool. He denies any recent myalgias or fevers or chills. I suspect LAUREN may be a manifestation of prerenal azotemia which may be improving. I'd suggest continuing IVF with normal saline @ 150 ml/hr overnight and checking a metabolic profile in the morning. No additional work up is necessary at this time. Joe denies any blood work in the past year. He is interested in additional psychiatric care upon discharge from the hospital.
--- NOTE | 2016-12-10 09:33 | Family Medicine Progress Note ---
Progress Note Date of Service Dec 10, 2016. Medications Current Inpatient Medications Medications (Trade) Dose Ordered Sig/Jean Carlos Route Start Time Stop Time Status Last Admin Dose Admin Acetaminophen (Tylenol Tab) 650 mg Q4H PRN PO 12/09/16 00:30 01/08/17 00:29 Fluoxetine HCl (Prozac Cap) 10 mg DAILY PO 12/09/16 09:00 01/08/17 08:59 12/10/16 07:41 10 MG Olanzapine (Zyprexa Tab) 20 mg DAILY PO 12/09/16 09:00 01/08/17 08:59 12/10/16 07:41 20 MG Magnesium Hydroxide (Milk Of Magnesia Susp) 30 ml Q6H PRN PO 12/09/16 00:30 01/08/17 00:29 Diphenhydramine HCl (Benadryl Inj) 25 mg Q4H PRN IV 12/09/16 00:30 01/08/17 00:29 Ondansetron HCl 4 mg 4 mg Q6H PRN IV 12/09/16 00:30 01/08/17 00:29 Sodium Chloride (Nss 1000ml) 1,000 ml @ 175 mls/hr Q5H43M IV 12/09/16 01:45 01/08/17 01:44 12/10/16 09:23 175 MLS/HR Objective Vital Signs Date Time Temp Pulse Resp B/P Pulse Ox O2 Delivery O2 Flow Rate FiO2 12/10/16 08:00 Room Air 12/10/16 07:30 36.4 71 20 135/88 20 Room Air 12/10/16 00:00 Room Air 12/09/16 23:15 37.0 86 19 129/81 97 Room Air 12/09/16 15:45 Room Air 12/09/16 14:59 36.8 83 18 130/72 97 Room Air Laboratory Results 12/10/16 05:22 Red Blood Count 4.11, Mean Corpuscular Volume 89.8, Mean Corpuscular Hemoglobin 29.7, Mean Corpuscular Hemoglobin Concent 33.1, Mean Platelet Volume 10.3, Neutrophils (%) (Auto) 44.3, Lymphocytes (%) (Auto) 44.6, Monocytes (%) (Auto) 7.4, Eosinophils (%) (Auto) 2.9, Basophils (%) (Auto) 0.6, Neutrophils # (Auto) 2.10, Lymphocytes # (Auto) 2.12, Monocytes # (Auto) 0.35, Eosinophils # (Auto) 0.14, Basophils # (Auto) 0.03 12/10/16 05:22 Test 12/09/16 10:55 12/10/16 05:22 Total Creatine Kinase 297 U/L (39-308) White Blood Count 4.75 K/uL (4.8-10.8) Red Blood Count 4.11 M/uL (4.7-6.1) Hemoglobin 12.2 g/dL (14.0-18.0) Hematocrit 36.9 % (42-52) Mean Corpuscular Volume 89.8 fL (80-100) Mean Corpuscular Hemoglobin 29.7 pg (25-34) Mean Corpuscular Hemoglobin Concent 33.1 g/dl (32-36) Platelet Count 191 K/uL (130-400) Mean Platelet Volume 10.3 fL (7.4-10.4) Neutrophils (%) (Auto) 44.3 % Lymphocytes (%) (Auto) 44.6 % Monocytes (%) (Auto) 7.4 % Eosinophils (%) (Auto) 2.9 % Basophils (%) (Auto) 0.6 % Neutrophils # (Auto) 2.10 K/uL (1.4-6.5) Lymphocytes # (Auto) 2.12 K/uL (1.2-3.4) Monocytes # (Auto) 0.35 K/uL (0.11-0.59) Eosinophils # (Auto) 0.14 K/uL (0-0.5) Basophils # (Auto) 0.03 K/uL (0-0.2) RDW Standard Deviation 43.5 fL (36.4-46.3) RDW Coefficient of Variation 13.2 % (11.5-14.5) Immature Granulocyte % (Auto) 0.2 % Immature Granulocyte # (Auto) 0.01 K/uL (0.00-0.02) Anion Gap 10.0 mmol/L (3-11) Est Creatinine Clear Calc Drug Dose 58.5 ml/min Estimated GFR () 48.3 Estimated GFR (Non- 41.7 BUN/Creatinine Ratio 9.2 (10-20) Calcium Level 8.2 mg/dl (8.5-10.1) Magnesium Level 2.0 mg/dl (1.8-2.4) Assessment and Plan DRAFT Psych consult LAUREN - continue IVF and trending Cr. Appreciate nephrology recommendations
--- NOTE | 2016-12-10 10:29 | Nephrology Progress Note ---
Nephrology Progress Note Date of Service Dec 10, 2016. Chief Complaint Follow up evaluation of acute kidney injury Subjective Mr. Alford was seen & examined in his hospital room this morning. He has a history of schizophrenia and Tourette's syndrome. He voluntarily presented to the [facility] ED for evaluation of psychosis after stopping his Fluoxetine and Zyprexa for 4 days. This morning he reports that he is again taking his medications and is symptomatically improved. He denies auditory hallucinations or desire to harm himself. The patient reports that his baseline creatinine was 1.1 about a year and a half ago. We do not currently have medical records. He does not maintain regular medical follow up or have a regular PCP. He is originally from [place], [place] and is cared for by a psychiatrist. He came to [place] to visit family. He is currently staying in a homeless usp while visiting. He denies the use of OTC medications, herbal supplements or illicit drugs. Review of Systems Constitutional: No fever Cardiovascular: No chest pain Respiratory: No dyspnea at rest Abdomen: No nausea, No pain, No vomiting Genitourinary - Male: No dysuria, No gross hematuria Extremities: No leg edema Neurologic: No weakness A complete review of systems was performed. Pertinent positives are noted above. All other systems are negative. Vital Signs Last 8 Hrs Date Time Temp Pulse Resp B/P Pulse Ox O2 Delivery O2 Flow Rate FiO2 12/10/16 08:00 Room Air 12/10/16 07:30 36.4 71 20 135/88 20 Room Air I & O 24-Hour Column 12/10/16 08:00 Intake Total 6002 ml Output Total 6175 ml Balance -173 ml Last Recorded Weight Weight (Kilograms): 93.000 Physical Exam General Appearance: no apparent distress Head: normocephalic, atraumatic Eyes: PERRL, EOMI Neck: supple, no adenopathy Respiratory/Chest: lungs clear, no respiratory distress Cardiovascular: regular rate, rhythm Abdomen/GI: normal bowel sounds, non tender, soft Extremities/Musculoskelatal: no calf tenderness, no pedal edema Neurologic/Psych: alert, oriented x 3 Family History Patient reports no known family medical history. Social History Smoking Status: Current every day smoker Smokeless Tobacco Use: No Drug Use: none Marital Status: single Housing Status: lives with friends Occupation: unemployed, disabled Laboratory Results Past 24 Hours 12/10/16 05:22 Red Blood Count 4.11, Mean Corpuscular Volume 89.8, Mean Corpuscular Hemoglobin 29.7, Mean Corpuscular Hemoglobin Concent 33.1, Mean Platelet Volume 10.3, Neutrophils (%) (Auto) 44.3, Lymphocytes (%) (Auto) 44.6, Monocytes (%) (Auto) 7.4, Eosinophils (%) (Auto) 2.9, Basophils (%) (Auto) 0.6, Neutrophils # (Auto) 2.10, Lymphocytes # (Auto) 2.12, Monocytes # (Auto) 0.35, Eosinophils # (Auto) 0.14, Basophils # (Auto) 0.03 12/09/16 10:55 12/10/16 05:22 Test 12/09/16 10:55 12/10/16 05:22 Anion Gap 8.0 mmol/L (3-11) 10.0 mmol/L (3-11) Est Creatinine Clear Calc Drug Dose 53.2 ml/min 58.5 ml/min Estimated GFR () 43.1 48.3 Estimated GFR (Non- 37.2 41.7 BUN/Creatinine Ratio 10.4 (10-20) 9.2 (10-20) Calcium Level 8.8 mg/dl (8.5-10.1) 8.2 mg/dl (8.5-10.1) Total Creatine Kinase 297 U/L (39-308) White Blood Count 4.75 K/uL (4.8-10.8) Red Blood Count 4.11 M/uL (4.7-6.1) Hemoglobin 12.2 g/dL (14.0-18.0) Hematocrit 36.9 % (42-52) Mean Corpuscular Volume 89.8 fL (80-100) Mean Corpuscular Hemoglobin 29.7 pg (25-34) Mean Corpuscular Hemoglobin Concent 33.1 g/dl (32-36) Platelet Count 191 K/uL (130-400) Mean Platelet Volume 10.3 fL (7.4-10.4) Neutrophils (%) (Auto) 44.3 % Lymphocytes (%) (Auto) 44.6 % Monocytes (%) (Auto) 7.4 % Eosinophils (%) (Auto) 2.9 % Basophils (%) (Auto) 0.6 % Neutrophils # (Auto) 2.10 K/uL (1.4-6.5) Lymphocytes # (Auto) 2.12 K/uL (1.2-3.4) Monocytes # (Auto) 0.35 K/uL (0.11-0.59) Eosinophils # (Auto) 0.14 K/uL (0-0.5) Basophils # (Auto) 0.03 K/uL (0-0.2) RDW Standard Deviation 43.5 fL (36.4-46.3) RDW Coefficient of Variation 13.2 % (11.5-14.5) Immature Granulocyte % (Auto) 0.2 % Immature Granulocyte # (Auto) 0.01 K/uL (0.00-0.02) Magnesium Level 2.0 mg/dl (1.8-2.4) Allergies Coded Allergies: Alprazolam (Unverified Allergy, Intermediate, HIVES, 12/08/16) Haloperidol (Unverified Allergy, Intermediate, HIVES, 12/08/16) Methylphenidate (Unverified Allergy, Mild, 12/08/16) Medications Current Inpatient Medications Medications (Trade) Dose Ordered Sig/Jean Carlos Route Start Time Stop Time Status Last Admin Dose Admin Acetaminophen (Tylenol Tab) 650 mg Q4H PRN PO 12/09/16 00:30 01/08/17 00:29 Fluoxetine HCl (Prozac Cap) 10 mg DAILY PO 12/09/16 09:00 01/08/17 08:59 12/10/16 07:41 10 MG Olanzapine (Zyprexa Tab) 20 mg DAILY PO 12/09/16 09:00 01/08/17 08:59 12/10/16 07:41 20 MG Magnesium Hydroxide (Milk Of Magnesia Susp) 30 ml Q6H PRN PO 12/09/16 00:30 01/08/17 00:29 Diphenhydramine HCl (Benadryl Inj) 25 mg Q4H PRN IV 12/09/16 00:30 01/08/17 00:29 Ondansetron HCl 4 mg 4 mg Q6H PRN IV 12/09/16 00:30 01/08/17 00:29 Sodium Chloride (Nss 1000ml) 1,000 ml @ 175 mls/hr Q5H43M IV 12/09/16 01:45 01/08/17 01:44 12/10/16 09:23 175 MLS/HR Impression (1) Acute renal failure (2) Tourette's syndrome (3) Schizophrenia Mr. Alford is a 36 year old admitted for evaluation of dehydration and LAUREN. He has a history of schizophrenia and Tourette's syndrome. He stopped taking his Zyprexa for 4 days prior to hospitalization. He presented to the [facility] ED for evaluation of auditory hallucinations and was found to have LAUREN. Patient does not have a PCP or maintain regular medical follow up. He reports that his serum creatinine was 1.1 one and a half years ago. Recommendations ACUTE KIDNEY INJURY: -- Patient is nonoliguric. Urine sediment is acellular. -- Renal US report reviewed today. No hydronephrosis -- Creatinine is trending down. Continue gentle IV hydration -- Will obtain CPK with am labs -- Continue IVF. Patient should remain hospitalized until creatinine < or = 1.5 since he has limited outpatient support PSYCHIATRY: -- Psychiatry recommendations have been reviewed. Patient has been started back on Fluoxetine and Zyprexa
--- NOTE | 2016-12-10 11:54 | Psychiatric Progress Notes ---
Psychiatric Progress Note Date of Service Dec 10, 2016. Notes Identifying information: 36 yr old male from the [place] area who is admitted to the hospitalist service with elevated creatinine. Psychiatry has been consulted for auditory hallucinations and suicidality, and he was seen by Dr. Conroy for an initial consultation yesterday. Chief complaint: "I feel better, want to go home." Interval history: On admission, the patient was restarted on olanzapine and fluoxetine, and has been denying suicidality here. He refused to sign a release of information so that family could be contacted for collateral information. Today he was seen in his hospital bed. He states he is feeling much better, auditory hallucinations have resolved, and he denies thoughts of harming himself. He states that he is planning to return to the hotel where he' s been staying, and may relocate to this area. He is vague about his psychosocial stressors and housing situation. He denies side effects to psychotropic medications, and states that if he remains local, he will get psychiatric providers in [place]. He denies problems with mood, appetite, and sleep. He is not interested in inpatient psychiatric treatment, stating he wants to be discharged as soon as possible. ROS: Denies constitutional symptoms, cardiac symptoms, respiratory symptoms, and GI symptoms. Well nourished, well developed male appearing older than his stated age. Dressed in a hospital gown with adequately groomed. Calm and cooperative. Lying in bed in NAD, with fair eye contact and no abnormal movements. Speech is normal rate, volume, and tone. Mood is "better," and affect is stable and congruent. Thoughts are linear, logical and goal directed. The patient denied suicidal and homicidal ideation and was able to safety plan. No paranoia, delusions, or hallucinations, and did not appear to be responding to internal stimuli. Cognition was grossly intact. Alert and oriented to person, place and time. Intelligence is consistent with level of education. Insight and and judgment are fair. Diagnosis: Mood disorder not otherwise specified History of depression not otherwise specified per records, and bipolar disorder and schizophrenia per patient's report History of malingering Recommendations: 1. Patient reports resolution of auditory hallucinations and suicidal thoughts after resuming home medications (olanzapine and fluoxetine). He does not meet criteria for inpatient psychiatric admission, and does not wish to pursue inpatient treatment, wanting to be discharged. He is cleared for discharge from a psychiatric perspective. He can either return to his previous psychiatric prescriber in the [place] area, or can initiate care with a local provider, which he states he will do on his own if he remains in the area. He would need [facility] medical assistance in order to access local providers.
[2016-12-10 15:05] VITALS: BP 138/91; PULSE 72; TEMP 36.9; O2SAT 97
[2016-12-10 15:29] VITALS: BP 118/78; PULSE 70; TEMP 36.7; O2SAT 96
[2016-12-10 16:00] VITALS: O2SAT 96
--- NOTE | 2016-12-10 18:29 | Discharge Instructions ---
Discharge Instructions Admission Reason for Admission: Acute Renal Failure, Suicidal Ideations (Jacky Mcgee MD) Discharge Discharge Diagnosis / Problem: LAUREN, suicidal ideation (Jacky Mcgee MD) Discharge Goals Goal(s): Increase independence, Improve disease control (Jacky Mcgee MD) Activity Recommendations Activity Limitations: resume your previous activity . (Jacky Mcgee MD) Instructions / Follow-Up Instructions / Follow-Up Follow up with your PCP in 1-2 days with repeat BMP. (Jacky Mcgee MD) Current Hospital Diet Patient's current hospital diet: Renal Diet (Jacky Mcgee MD) Discharge Diet Recommended Diet: Regular Diet (Jacky Mcgee MD) Pending Studies Studies pending at discharge: no (Jacky Mcgee MD) Laboratory Results 12/10/16 05:22 Red Blood Count 4.11, Mean Corpuscular Volume 89.8, Mean Corpuscular Hemoglobin 29.7, Mean Corpuscular Hemoglobin Concent 33.1, Mean Platelet Volume 10.3, Neutrophils (%) (Auto) 44.3, Lymphocytes (%) (Auto) 44.6, Monocytes (%) (Auto) 7.4, Eosinophils (%) (Auto) 2.9, Basophils (%) (Auto) 0.6, Neutrophils # (Auto) 2.10, Lymphocytes # (Auto) 2.12, Monocytes # (Auto) 0.35, Eosinophils # (Auto) 0.14, Basophils # (Auto) 0.03 12/10/16 05:22 Test 12/10/16 05:22 White Blood Count 4.75 K/uL (4.8-10.8) Red Blood Count 4.11 M/uL (4.7-6.1) Hemoglobin 12.2 g/dL (14.0-18.0) Hematocrit 36.9 % (42-52) Mean Corpuscular Volume 89.8 fL (80-100) Mean Corpuscular Hemoglobin 29.7 pg (25-34) Mean Corpuscular Hemoglobin Concent 33.1 g/dl (32-36) Platelet Count 191 K/uL (130-400) Mean Platelet Volume 10.3 fL (7.4-10.4) Neutrophils (%) (Auto) 44.3 % Lymphocytes (%) (Auto) 44.6 % Monocytes (%) (Auto) 7.4 % Eosinophils (%) (Auto) 2.9 % Basophils (%) (Auto) 0.6 % Neutrophils # (Auto) 2.10 K/uL (1.4-6.5) Lymphocytes # (Auto) 2.12 K/uL (1.2-3.4) Monocytes # (Auto) 0.35 K/uL (0.11-0.59) Eosinophils # (Auto) 0.14 K/uL (0-0.5) Basophils # (Auto) 0.03 K/uL (0-0.2) RDW Standard Deviation 43.5 fL (36.4-46.3) RDW Coefficient of Variation 13.2 % (11.5-14.5) Immature Granulocyte % (Auto) 0.2 % Immature Granulocyte # (Auto) 0.01 K/uL (0.00-0.02) Anion Gap 10.0 mmol/L (3-11) Est Creatinine Clear Calc Drug Dose 58.5 ml/min Estimated GFR () 48.3 Estimated GFR (Non- 41.7 BUN/Creatinine Ratio 9.2 (10-20) Calcium Level 8.2 mg/dl (8.5-10.1) Phosphorus Level 3.4 mg/dl (2.5-4.9) Magnesium Level 2.0 mg/dl (1.8-2.4) (Jacky Mcgee MD) Medical Emergencies . Who to Call and When: Medical Emergencies: If at any time you feel your situation is an emergency, please call 911 immediately. . (Jacky Mcgee MD) Non-Emergent Contact Non-Emergency issues call your: Primary Care Provider . (Jacky Mcgee MD) . "Provider Documentation" section prepared by Jakcy Mcgee. (Jacky Mcgee MD) Attending Attestation: Pt seen/examined and care plan d/w PGY2 Dr. Jacky Mcgee on day of discharge. I agree with his discharge instructions as outlined. Of note - the patient left against medical advice (AMA). He was counseled by Dr. Mcgee that it was recommended he stay until tomorrow AM for repeat labs, ongoing IV fluids, etc. He was alert/oriented x 3 and without suicidal ideation at time of discharge. He voiced understanding of what it means to leave AMA. Follow-up within 24 hours was recommended and the patient voiced understanding of this recommendation as well. Jacky Jones MD (Jacky Jones MD) VTE Core Measure Inpt VTE Proph given/why not?: SCD's (Jacky Mcgee MD)
--- NOTE | 2016-12-10 23:51 | Discharge Summary ---
Discharge Summary Admission Date: Dec 09, 2016 at 00:32 Discharge Date: Dec 10, 2016 Discharge Disposition: Home (AMA) Principal Diagnosis: LAUREN Problems/Secondary Diagnoses: Bipolar disorder/depression/schizophrenia/Tourette syndrome/suicidal ideation Immunizations: Have You Had Influenza Vaccine: Yes History of Tetanus Vaccine?: Yes History of Pneumococcal: Yes History of Hepatitis B Vaccine: Yes Consultations: Psychiatry Nephrology (Jacky Mcgee MD) Medication Reconciliation Continued Medications: Fluoxetine (Prozac) 10 Mg Cap 10 MG PO DAILY Olanzapine (Zyprexa) 20 Mg Tab 20 MG PO DAILY Discharge Exam Wishes to sign out AMA. Discharged from the psychiatry service. Patient was advised to stay in for one additional day to check his kidney function in the morning as it is still not back to his baseline. However he notes he has his in [place], [place] who is currently unwell. I advised him to tell his to call for a doctor or in an emergency to phone 911. We discussed the risk of leaving without rechecking his lab test tomorrow including worsening acute renal failure and mental status which could result in permanent damage or . He was able to understand this and repeat back to me, weight up, come to a decision and communicate that decision. He denied any auditory hallucinations , suicidal or homicidal ideation. The psychiatry service has already effectively discharged him today therefore there are no grounds for a section on mental health grounds at present. AMA paperwork was given to the patient which he signed. All other systems reviewed and negative Physical Exam: General Appearance: WD/WN, no apparent distress Eyes: normal inspection (pupils equal), EOMI (grossly) Neck: supple, no JVD Respiratory/Chest: chest non-tender, lungs clear, normal breath sounds, no respiratory distress, no accessory muscle use Cardiovascular: regular rate, rhythm, no murmur, normal peripheral pulses Abdomen / GI: normal bowel sounds, non tender (no CVA tenderness), soft Extremities: normal inspection, no calf tenderness, normal capillary refill , no pedal edema, normal range of motion Neurologic/Psychiatric: director of curriculum and instruction II-XII nml as tested, no motor/sensory deficits , alert, normal mood/affect (appears agitated to go), oriented x 3 Skin: normal color, warm/dry, no rash (Jacky Mcgee MD) Hospital Course Mr Alford was admitted to [facility] 11-10 December 2016 via police for a mental health evaluation following worsening suicidal thoughts and hearing voices. He stated that the voices have told him to jump off of a roof. He was arguing with his that evening when his anxiety became worse and the voices became louder. Routine labs showed LAUREN with Cr 2.5 (last known Cr 18 months previously 1.1) secondary to dehydration from poor oral intake. He was treated with IVF and this is trending down Cr 2.0 on discharge. He was advised to stay for repeat Cr measurements to make sure they are returning closer to his baseline however he signed out AMA (see above). He was advised to have repeat labs in 1- 2 days and script was given for this. He should establish + follow up with a PCP or urgent care. He was evaluate by psychiatry. He was restarted on his outpatient medications ( olanzapine and fluoxetine) which he reports he was not taking. During the course of his admission he has not had any suicidal thoughts or auditory hallucinations and so subsequently was deemed suitable for outpatient follow up. He was recommended to call his outpatient psychiatrist on discharge. He did not give permission to speak to his family members for a collaborative history. Total Time Spent: Greater than 30 minutes This includes examination of the patient, discharge planning, medication reconciliation, and communication with other providers. (Jacky Mcgee MD) Resident Physician Supervision Note: I was present with PGY2 Dr. Jacky Mcgee during the discharge history and exam. I discussed the case with the resident and agree with the findings and plan as documented in this discharge summary. Any exceptions or clarifications are listed here: none. 36yo male with past history of schizophrenia and bipolar disorder who presented with acute psychosis and suicidal ideation vs thoughts of dying. At time of admission he had evidence of acute kidney injury with creatinine > 2. His acute kidney injury was thought to be 2nd to poor oral intake / prerenal state. He was seen in consult by both nephrology and psychiatry for the above issues. His creatinine improved with use of IVF fluids (discharge creatinine was 2). Psychiatry saw the patient multiple times and with restarting his home antipsychotic zyprexa his psychosis quickly resolved. On day of discharge the patient was awake, alert, and oriented x 3. He voiced no suicidal or homicidal ideation. On the evening of 12/10/16 the patient requested discharge from the hospital. It was recommended he stay for an additional 24 hours to recheck his renal function and to continue monitoring his mental status. He refused to stay, ultimately signing out AMA. Dr. Mcgee evaluated the patient extensively before his departure and it was confirmed he was awake, alert, and oriented x 3 and had no suicidal/homicidal ideation. He voiced understanding of the AMA process. discharge exam - gen - NAD mouth - MMM heart - RRR, s1, s2, no murmur lungs - CTA b/l abd - soft, NT, BS+ ext - no edema psych - a/o x 3 The patient was advised to follow-up with his PCP within 24 hours to recheck the basic metabolic panel. Outpatient psychiatric follow-up was also recommended. Jacky Jones MD (Jacky Jones MD) Discharge Instructions Please refer to the electronic Patient Visit Report (Discharge Instructions) for additional information. (Jacky Mcgee MD) Follow-Up Labs in 1-2 days, script given for BMP. Establish and follow up with PCP or urgent care tomorrow. (Jacky Mcgee MD) Additional Copies To enavu, [place], [place] Resident Tracking Resident Involvement: Resident Care Provided Care Provided: Adult Hospital Medicine (Jacky Mcgee MD)
[2016-12-13 17:35] LABS: SYNTHETIC CANNABINOIDS QL URIN NEGATIVE (Negative)
== END 2016-12-10 19:15 | disposition left against medical advice (07) | DRG 683 ==
LOC: ENRESERVTM → ENRESERVDT → EEVIPCON 21:02 → C.EDB 21:02 → C.MED 12-09 00:32
PROVIDERS: ADMIT Hospitalist; ATTEND Internal Medicine
DX: N17.9 Acute kidney failure, unspecified (principal); M62.82 Rhabdomyolysis; R45.851 Suicidal ideations; F95.2 Tourette's disorder; N18.9 Chronic kidney disease, unspecified; E86.0 Dehydration; F17.210 Nicotine dependence, cigarettes, uncomplicated; F31.9 Bipolar disorder, unspecified; F20.9 Schizophrenia, unspecified; Z79.899 Other long term (current) drug therapy; Z53.21 Procedure and treatment not carried out due to patient leaving prior to being seen by health care provider

== ENCOUNTER 2016-12-12 01:56 | Inpatient (IN) | payer OTHER ==
[~2016-12-12] VITALS: Ht 182.9 cm; Wt 95.1 kg
[~2016-12-12 01:56] MED LIST changes: -OLAN-102 PO; +OLAN1TAB5 PO
[2016-12-12] MEDS ORDERED: SODIUM CHLORIDE 0.9% 1000ML 1,000 ML IV STA (02:06)
[2016-12-12 02:28] LABS: HEMATOCRIT 36.1 % (42-52); MEAN CELL VOLUME 88.7 fL (80-100); MEAN CORPUSCULAR HGB CONC 34.9 g/dl (32-36); PLATELET COUNT 208 K/uL (130-400); RED BLOOD COUNT 4.07 M/uL (4.7-6.1); WHITE BLOOD COUNT 6.87 K/uL (4.8-10.8)
--- NOTE | 2016-12-12 02:32 | EMERGENCY ROOM VISIT NOTE ---
History Report prepared by Lioibzita: Yoan Roland Under the Supervision of: Dr. Jesse Kaba D.O. First contact with patient: 01:59 Chief Complaint: MENTAL HEALTH EVALUATION Stated Complaint: MENTAL HEALTH/SUICIDAL IDEATION History of Present Illness The patient is a 36 year old male who presents to the Emergency Room for an acute mental health evaluation. The patient has been having persistent suicidal ideations for several days. The patient was in the ED a few days ago with suicidal ideations and hearing voices in his head. The patient was admitted medically for renal failure at that time, but was also being evaluated for his mental health complaints. The patient signed out of the hospital AMA. The patient attributes his persistent suicidal thoughts to leaving the hospital too soon. He would like to be readmitted and stay in the hospital longer. The patient is hearing the voices less frequently now. Source of History: patient Onset: several days Position: other (psyche) Quality: other (mental health evaluation) Timing: other (acute) Note: Positive suicidal ideations. Review of Systems See HPI for pertinent positives & negatives. A total of 10 systems reviewed and were otherwise negative. Past Medical & Surgical Medical Problems: (1) Acute renal failure (2) Bipolar disorder (3) Depression (4) Schizophrenia (5) tourette's syndrome (6) Tourette's syndrome Family History Patient reports no known family medical history. Social History Smoking Status: Current Every Day Smoker Alcohol Use: occasionally Drug Use: none Marital Status: single Housing Status: other Occupation Status: unemployed, disabled Current/Historical Medications Scheduled Fluoxetine (Prozac), 10 MG PO DAILY Olanzapine (Zyprexa), 20 MG PO DAILY Allergies Coded Allergies: Alprazolam (Unverified Allergy, Intermediate, HIVES, 12/12/16) Haloperidol (Unverified Allergy, Intermediate, HIVES, 12/12/16) Methylphenidate (Unverified Allergy, Mild, 12/12/16) Physical Exam Vital Signs Date Time Temp Pulse Resp B/P Pulse Ox O2 Delivery O2 Flow Rate FiO2 12/12/16 03:33 94 18 146/72 97 Room Air 12/12/16 02:02 37.0 70 20 148/100 98 Room Air Physical Exam CONSTITUTIONAL/VITAL SIGNS: Reviewed / noted above. GENERAL: Non-toxic in appearance. INTEGUMENTARY: Warm, dry, and [place]. HEAD: Normocephalic. EYES: without scleral icterus or trauma. ENT/OROPHARYNX: clear and moist. LYMPHADENOPATHY/NECK: Is supple without lymphadenopathy or meningismus. RESPIRATORY: Lungs clear and equal. CARDIOVASCULAR: Regular rate and rhythm. GI/ABDOMEN: Soft and nontender. No organomegaly or pulsatile mass. No rebound or guarding. Normal bowel sounds. EXTREMITIES: Warm and well perfused. BACK: No CVA tenderness. NEUROLOGICAL: Intact without focal deficits. PSYCHIATRIC: normal affect. Reports suicidal ideation. Not hearing voices now. MUSCULOSKELETAL: Normally developed with good muscle tone. Medical Decision & Procedures Laboratory Results 12/12/16 02:17 Red Blood Count 4.07, Mean Corpuscular Volume 88.7, Mean Corpuscular Hemoglobin 31.0, Mean Corpuscular Hemoglobin Concent 34.9, Mean Platelet Volume 10.0, Neutrophils (%) (Auto) 49.6, Lymphocytes (%) (Auto) 42.4, Monocytes (%) (Auto) 5.4, Eosinophils (%) (Auto) 2.2, Basophils (%) (Auto) 0.3, Neutrophils # (Auto) 3.41, Lymphocytes # (Auto) 2.91, Monocytes # (Auto) 0.37, Eosinophils # (Auto) 0.15, Basophils # (Auto) 0.02 12/12/16 02:17 Test 12/12/16 00:00 12/12/16 02:17 Urine Opiates Screen NEG (NEG) Urine Methadone, Qualitative NEG (NEG) Urine Barbiturates NEG (NEG) Urine Phencyclidine (PCP) Level NEG (NEG) Ur Amphetamine/Methamphetamine NEG (NEG) MDMA (Ecstasy) Screen NEG (NEG) Urine Benzodiazepines Screen NEG (NEG) Urine Cocaine Metabolite NEG (NEG) Urine Marijuana (THC) NEG (NEG) White Blood Count 6.87 K/uL (4.8-10.8) Red Blood Count 4.07 M/uL (4.7-6.1) Hemoglobin 12.6 g/dL (14.0-18.0) Hematocrit 36.1 % (42-52) Mean Corpuscular Volume 88.7 fL (80-100) Mean Corpuscular Hemoglobin 31.0 pg (25-34) Mean Corpuscular Hemoglobin Concent 34.9 g/dl (32-36) Platelet Count 208 K/uL (130-400) Mean Platelet Volume 10.0 fL (7.4-10.4) Neutrophils (%) (Auto) 49.6 % Lymphocytes (%) (Auto) 42.4 % Monocytes (%) (Auto) 5.4 % Eosinophils (%) (Auto) 2.2 % Basophils (%) (Auto) 0.3 % Neutrophils # (Auto) 3.41 K/uL (1.4-6.5) Lymphocytes # (Auto) 2.91 K/uL (1.2-3.4) Monocytes # (Auto) 0.37 K/uL (0.11-0.59) Eosinophils # (Auto) 0.15 K/uL (0-0.5) Basophils # (Auto) 0.02 K/uL (0-0.2) RDW Standard Deviation 42.3 fL (36.4-46.3) RDW Coefficient of Variation 13.2 % (11.5-14.5) Immature Granulocyte % (Auto) 0.1 % Immature Granulocyte # (Auto) 0.01 K/uL (0.00-0.02) Prothrombin Time 10.2 SECONDS (9.0-12.0) Prothromb Time International Ratio 1.0 (0.9-1.1) Anion Gap 8.0 mmol/L (3-11) Est Creatinine Clear Calc Drug Dose 68.8 ml/min Estimated GFR () 54.9 Estimated GFR (Non- 47.4 BUN/Creatinine Ratio 15.7 (10-20) Calcium Level 8.3 mg/dl (8.5-10.1) Total Bilirubin 0.2 mg/dl (0.2-1) Aspartate Amino Transf (AST/SGOT) 23 U/L (15-37) Alanine Aminotransferase (ALT/SGPT) 33 U/L (12-78) Alkaline Phosphatase 94 U/L (45-117) Total Protein 6.9 gm/dl (6.4-8.2) Albumin 3.5 gm/dl (3.4-5.0) Globulin 3.4 gm/dl (2.5-4.0) Albumin/Globulin Ratio 1.0 (0.9-2) Thyroid Stimulating Hormone (TSH) 4.860 uIu/ml (0.300-4.500) Free Triiodothyronine 4.42 pg/ml (2.30-4.20) Salicylates Level < 1.7 mg/dl (2.8-20) Acetaminophen Level < 2 ug/ml (10-30) Ethyl Alcohol mg/dL < 3.0 mg/dl (0-3) Laboratory results as stated above per my review. Medications Administered Medications (Trade) Dose Ordered Sig/Jean Carlos Route Start Time Stop Time Status Last Admin Dose Admin Sodium Chloride (Nss 1000ml) 1,000 ml @ 999 mls/hr Q1H1M STAT IV 12/12/16 02:06 12/12/16 03:06 DC 12/12/16 02:06 999 MLS/HR ED Course 0201: Previous medical records were reviewed. The patient was evaluated in room A7. A complete history and physical examination was performed. 0206: NSS 1000 ml @ 999 mls/hr. 0320: Discussed the case with Dr. Busch [facility]. The patient will be evaluated. Medical Decision Differential includes toxic ingestions, self-mutilation, suicidal ideation, suicide attempt, depression. This is a 36-year-old male who presents to the ED with a chief complaint of feeling suicidal. The patient was admitted 3 days ago for renal insufficiency as well as hearing voices and suicidal ideation. From a medical standpoint, he was evaluated by nephrology who suggests that he should stay in the hospital until his creatinine was less than 1.5. The patient signed out AGAINST MEDICAL ADVICE yesterday but decided to come back because he continues to feel suicidal. He is looking to be readmitted to the hospital. The patient denies any other symptoms. He denies attempting to cause harm to himself. His vital signs are stable. His physical exam was unremarkable. Consults Time Called: [phone] Consulting Physician: [facility]. [facility] Returned Call: [phone]: [facility] The patient will be evaluated. Impression Primary Impression: Renal insufficiency Additional Impression: Suicidal ideation Scribe Attestation The scribe's documentation has been prepared under my direction and personally reviewed by me in its entirety. I confirm that the note above accurately reflects all work, treatment, procedures, and medical decision making performed by me. Departure Information Dispostion Being Evaluated By Hospitalist Referrals No Doctor, Assigned (PCP) Patient Instructions My [facility] Problem Qualifiers
[2016-12-12 02:54] LABS: ACETAMINOPHEN < 2 ug/ml (10-30); BUN/CREATININE RATIO 15.7 (10-20); CALCIUM 8.3 mg/dl (8.5-10.1); CREATININE 1.8 mg/dl (0.60-1.40); POTASSIUM 4.2 mmol/L (3.5-5.1)
[2016-12-12 02:57] LABS: BENZODIAZEPINE, URINE NEG (NEG); COCAINE,URINE NEG (NEG); PHENCYCLIDINE, URINE NEG (NEG)
[2016-12-12 03:04] LABS: THYROID STIMULATING HORMONE 4.86 uIu/ml (0.300-4.500)
[2016-12-12 03:18] LABS: BASO % 0.3 %; BASO ABS # 0.02 K/uL (0-0.2); COMPLETE YES; EOS % 2.2 %; IG% 0.1 %; LYMPH % 42.4 %; LYMPH ABS # 2.91 K/uL (1.2-3.4); MONO % 5.4 %; NEUT % 49.6 %
[2016-12-12] MEDS ORDERED: ZOLPIDEM TARTRATE 5 MG TAB PO PRN (03:45)
[2016-12-12] MEDS ORDERED: HEPARIN SOD 5000 UNIT/0.5 ML CARP SQ SCH (03:45)
[2016-12-12] MEDS ORDERED: MAGNESIUM HYDROXIDE SUSP 30 ML UDC PO PRN (03:45)
[2016-12-12] MEDS ORDERED: ALUMINUM/MAGNESIUM/SIMETH (MAALOX MAX) 30 ML UDC PO PRN (03:45)
[2016-12-12] MEDS ORDERED: ONDANSETRON INJ 2 MG/ML 2 ML VIAL IV PRN (03:45)
[2016-12-12] MEDS ORDERED: ACETAMINOPHEN 325 MG TAB PO PRN (03:45)
[2016-12-12] MEDS ORDERED: POLYETHYLENE (MIRALAX) 17 GM PACK PO PRN (04:00)
--- NOTE | 2016-12-12 04:04 | History and Physical ---
History & Physical Date & Time of Service: Dec 12, 2016 at 03:51 Chief Complaint: Mental Health/Suicidal Ideation Primary Care Physician: No Doctor, Assigned History of Present Illness Source: patient, hospital records 36 y/o M w/Hx schizophrenia and depression who was admitted to the hospital 3 days prior due tp suicidal ideation and incidentally discovered ARF. The pt may have been dehydrated for a period due to diarrhea and poor intake leading to prerenal azotemia however the etiology of his ARF could not be confirmed. His initial creatinine was 2.5 and he was provided with IVF to achieve a goal creatinine of 1.5 per nephrology recommendation. Prior to achieving the target creatinine the pt signed out AMA. He has now returned stating that he left the hospital too soon but aside from continued suicidal thoughts denies any additional physical symptoms. His creatinine at the time of admission is 1.8. Past Medical/Surgical History Medical Problems: (1) Bipolar disorder Status: Chronic (2) Depression Status: Chronic (3) Schizophrenia Status: Chronic (4) tourette's syndrome Status: Chronic Family History Patient reports no known family medical history. Father with Tourette's Mother recently due to a drug overdose Social History Smokes one pack QD - denies drug or ETOH use Smoking Status: Current Every Day Smoker Drug Use: none Marital Status: single Housing status: lives with friends Occupational Status: unemployed, disabled Immunizations History of Influenza Vaccine: Yes History of Tetanus Vaccine?: Yes History of Pneumococcal: Yes History of Hepatitis B Vaccine: Yes Multi-Drug Resistant Organisms History of MDRO: No Allergies Coded Allergies: Alprazolam (Unverified Allergy, Intermediate, HIVES, 12/12/16) Haloperidol (Unverified Allergy, Intermediate, HIVES, 12/12/16) Methylphenidate (Unverified Allergy, Mild, 12/12/16) Home Medications Scheduled Fluoxetine (Prozac), 10 MG PO DAILY Olanzapine (Zyprexa), 20 MG PO DAILY Review of Systems Constitutional: No chills, No fever, No sweats Eyes: No eye pain, No worsening of vision ENT: No hearing loss, No nasal symptoms, No unusual epistaxis Respiratory: No cough, No sputum, No wheezing Cardiovascular: No PND, No chest pain, No orthopnea Abdomen: No nausea, No pain, No vomiting Musculoskeletal: No joint pain, No muscle pain Genitourinary - Male: No dysuria, No hematuria, No urinary frequency, No urinary urgency Neurologic: No memory loss, No paralysis, No weakness Psychiatric: + depression symptoms, + problem reported (suicidal thoughts as above) Endocrine: No excessive thirst, No fatigue Hematologic / Lymphatic: No abnormal bleeding/bruising Integumentary: No itch, No rash Allergic / Immunologic: No environmental allergies Physical Exam Vital Signs Date Time Temp Pulse Resp B/P Pulse Ox O2 Delivery O2 Flow Rate FiO2 12/12/16 03:33 94 18 146/72 97 Room Air 12/12/16 02:02 37.0 70 20 148/100 98 Room Air General Appearance: WD/WN, no apparent distress Head: normocephalic, atraumatic Eyes: normal inspection, EOMI ENT: normal ENT inspection, pharynx normal Neck: supple, no JVD Respiratory/Chest: chest non-tender, lungs clear, normal breath sounds, no respiratory distress, no accessory muscle use Cardiovascular: regular rate, rhythm, no edema, no gallop, no JVD, no murmur, normal peripheral pulses Abdomen/GI: normal bowel sounds, non tender, soft Back: normal inspection, no CVA tenderness Extremities/Musculoskelatal: normal inspection, no calf tenderness, normal capillary refill, no pedal edema, normal range of motion Neurologic/Psych: marketing strategy analyst II-XII nml as tested, no motor/sensory deficits, alert, normal mood/affect, normal reflexes, oriented x 3 Skin: normal color, warm/dry, no rash Diagnostics Laboratory Results Results Past 24 Hours Test 12/12/16 00:00 12/12/16 02:17 12/12/16 03:46 Range/Units Urine Opiates Screen NEG NEG Urine Methadone, Qualitative NEG NEG Urine Barbiturates NEG NEG Urine Phencyclidine (PCP) Level NEG NEG Ur Amphetamine/Methamphetamine NEG NEG MDMA (Ecstasy) Screen NEG NEG Urine Benzodiazepines Screen NEG NEG Urine Cocaine Metabolite NEG NEG Urine Marijuana (THC) NEG NEG White Blood Count 6.87 4.8-10.8 K/uL Red Blood Count 4.07 4.7-6.1 M/uL Hemoglobin 12.6 14.0-18.0 g/dL Hematocrit 36.1 42-52 % Mean Corpuscular Volume 88.7 80-100 fL Mean Corpuscular Hemoglobin 31.0 25-34 pg Mean Corpuscular Hemoglobin Concent 34.9 32-36 g/dl Platelet Count 208 130-400 K/uL Mean Platelet Volume 10.0 7.4-10.4 fL Neutrophils (%) (Auto) 49.6 % Lymphocytes (%) (Auto) 42.4 % Monocytes (%) (Auto) 5.4 % Eosinophils (%) (Auto) 2.2 % Basophils (%) (Auto) 0.3 % Neutrophils # (Auto) 3.41 1.4-6.5 K/uL Lymphocytes # (Auto) 2.91 1.2-3.4 K/uL Monocytes # (Auto) 0.37 0.11-0.59 K/uL Eosinophils # (Auto) 0.15 0-0.5 K/uL Basophils # (Auto) 0.02 0-0.2 K/uL RDW Standard Deviation 42.3 36.4-46.3 fL RDW Coefficient of Variation 13.2 11.5-14.5 % Immature Granulocyte % (Auto) 0.1 % Immature Granulocyte # (Auto) 0.01 0.00-0.02 K/uL Sodium Level 142 136-145 mmol/L Potassium Level 4.2 3.5-5.1 mmol/L Chloride Level 109 98-107 mmol/L Carbon Dioxide Level 25 21-32 mmol/L Anion Gap 8.0 3-11 mmol/L Creatinine 1.80 0.60-1.40 mg/dl Est Creatinine Clear Calc Drug Dose 68.8 ml/min Estimated GFR () 54.9 Estimated GFR (Non- 47.4 BUN/Creatinine Ratio 15.7 10-20 Random Glucose 93 70-99 mg/dl Calcium Level 8.3 8.5-10.1 mg/dl Total Bilirubin 0.2 0.2-1 mg/dl Aspartate Amino Transf (AST/SGOT) 23 15-37 U/L Alanine Aminotransferase (ALT/SGPT) 33 12-78 U/L Alkaline Phosphatase 94 45-117 U/L Total Protein 6.9 6.4-8.2 gm/dl Albumin 3.5 3.4-5.0 gm/dl Globulin 3.4 2.5-4.0 gm/dl Albumin/Globulin Ratio 1.0 0.9-2 Thyroid Stimulating Hormone (TSH) 4.860 0.300-4.500 uIu/ml Salicylates Level < 1.7 2.8-20 mg/dl Acetaminophen Level < 2 10-30 ug/ml Ethyl Alcohol mg/dL < 3.0 0-3 mg/dl Impression Assessment and Plan 36 y/o M w/Hx schizophrenia and depression who was admitted to the hospital 3 days prior due tp suicidal ideation and incidentally discovered ARF. The pt may have been dehydrated for a period due to diarrhea and poor intake leading to prerenal azotemia however the etiology of his ARF could not be confirmed. His initial creatinine was 2.5 and he was provided with IVF to achieve a goal creatinine of 1.5 per nephrology recommendation. Prior to achieving the target creatinine the pt signed out AMA. He has now returned stating that he left the hospital too soon but aside from continued suicidal thoughts denies any additional physical symptoms. His creatinine at the time of admission is 1.8. 1) ARF - etiology not clear - improving w/IVF prior to signing out AMA -\We will provide aggressive IVF and recheck a BMP AM 2) Suicidal thoughts - schizophrenia - pt stated he was hearing voices a few days prior but this seems to have resolved - he continues to c/o suicidal ideation. We will consult psychiatry and place him on 1- obs. We will continue Zyprexa and Fluoxetine pending eval by mental health. 3) TSH is slightly high - we will check T3,T4 Heparin prophylaxis - full code Total time for this admit including discussion with ER attending - review of labs, records, meds and recent consults - discussion with pt - 32 min Level of Care Med/Surg Resuscitation Status FULL RESUSCITATION VTE Prophylaxis VTE Risk Assessment Done? Y/N: Yes Risk Level: Low Given or contraindicated: Unfractionated heparin SQ
[2016-12-12] MEDS: SODIUM CHLORIDE 0.9% 1000ML 1,000 ML IV SCH ×3 (05:08→14:46)
[2016-12-12 05:27] LABS: PROTHROMBIN TIME (PATIENT) 10.2 SECONDS (9.0-12.0)
[2016-12-12] MEDS: HEPARIN SOD 5000 UNIT/0.5 ML CARP SQ SCH ×4 (07:14→21:24)
[2016-12-12] MEDS ORDERED: FLUOXETINE HCL 10 MG CAP PO SCH (09:00)
[2016-12-12] MEDS ORDERED: OLANZAPINE 20 MG TAB PO SCH (09:00)
[2016-12-12 10:07] VITALS: BP 137/78; PULSE 88; TEMP 36.8; O2SAT 96; Ht 182.9 cm; Wt 95.1 kg
[2016-12-12 10:52] LABS: BUN/CREATININE RATIO 13.1 (10-20); CALCIUM 8.2 mg/dl (8.5-10.1); CREATININE 1.9 mg/dl (0.60-1.40); MAGNESIUM 1.9 mg/dl (1.8-2.4); POTASSIUM 4.3 mmol/L (3.5-5.1)
[2016-12-12 13:48] LABS: URINE APPEARANCE CLEAR (CLEAR); URINE BILIRUBIN NEG (NEG); URINE COLOR YELLOW; URINE EPITHELIAL CELL AUTO 0-5 /lpf (0-5); URINE NITRITE NEG (NEG); URINE PH 5.5 (4.5-7.5); URINE SPECIFIC GRAVITY 1.004 (1.000-1.030); UROBILINOGEN NEG (NEG); ZZUR CULT IF INDIC CLEAN CATCH NO
[2016-12-12 13:49] LABS: MANUAL MICROSCOPIC REQUIRED? NO; REVIEW REQ? NO
[2016-12-12 14:51] VITALS: BP 127/74; PULSE 81; TEMP 36.7; O2SAT 96
--- NOTE | 2016-12-12 15:14 | Psychiatric Consultation ---
Consultation Identifying Data 36-year-old male from [place] who has a history of psychotic illness and malingering and was recently discharged AMA from the hospital service after being admitted for renal failure, who reports presented to the emergency room 2 days later, requesting admission for suicidal thoughts. He was found to be in acute renal failure, and was admitted to the hospitalist service, and psychiatry was consulted for suicidality. Chief Complaint "I'm fine now". History of Present Illness The patient is known to me from psychiatric consultation on 12/10/2016. He admitted admitted the day prior due to renal failure, and psychiatry was consulted due to his reports of auditory hallucinations and suicidal thoughts. He was continued on his home doses of olanzapine and fluoxetine, and stated that the hallucinations and suicidal thoughts resolved immediately after starting his medications again. He was then discharged AMA, even though he was advised to stay for 1 more day to recheck his kidney function, as it had still not return to his baseline. He was to follow-up with his regular outpatient providers in [place]. He then presented to the emergency room early this morning reporting suicidal thoughts, stating he thought he had left the hospital too soon, and requesting to be readmitted and to stay in the hospital longer. On my assessment, the patient was initially sleeping, snoring loudly. He was easily awoken, and then began eating his lunch voraciously. He denied hearing voices and denied suicidal thoughts, stating "I'm fine now since I took that medication." It was difficult to get him to clarify what medication he was referring to, or why he said he was suicidal in the emergency room, as he is now stating he hasn't had suicidal thoughts for about 8 months. He admits that he has not been sleeping well due to having nowhere to stay, and says he has been sleeping "wherever I can, at the HUB." He is evasive and a poor historian with respect to his social history and why he his [place]. When we saw him on the consult service this past weekend, he was similarly vague, and refused to allow us to speak with family or friends for collateral information. He says that he is from [place], where he previously been living with his , but they got into an argument, and so he came to [place] because he has a friend here. He says he took a bus here couple of weeks ago, and then found out when he arrived that his friend had moved. He cannot explain why he did not contact his friend prior to taking a bus to this area. He states he plans to return to [place], as that is where his outpatient providers are, and would like to talk to somebody about getting him back there. It was difficult to get this amount of information out of him, as he is mainly focused on eating his lunch, and trying to find out why he did not get cookies on his tray. Past Psychiatric History Current OP Treatment: psychiatrist (reports he has a psychiatrist in [place] whose name he does not know) Prior Psych Hospitalizations: [facility] (2014), [facility] ( 2011, for 1 night, as suicidal thoughts resolved after he ate and slept.) Diagnosed with malingering during his 2011 admission to our behavioral health unit, after he reported suicidality in the emergency room, but then admitted to only seeking hospitalization because it was cold outside and he had nowhere to stay. He was on Zyprexa and Prozac at that time, which were continued at his home doses. He reports a history of bipolar disorder and Tourette's, which have not been confirmed with outpatient records. Records also indicate a history of taking Abilify. Allergies Allergies: Coded Allergies: Alprazolam (Unverified Allergy, Intermediate, HIVES, 12/12/16) Haloperidol (Unverified Allergy, Intermediate, HIVES, 12/12/16) Methylphenidate (Unverified Allergy, Mild, 12/12/16) Home Medications Scheduled Fluoxetine (Prozac), 10 MG PO DAILY Olanzapine (Zyprexa), 20 MG PO DAILY Family History Patient reports no known family medical history. Patient denies family history of mental illness, substance abuse, or suicide. Alcohol Use Alcohol Use In Past 12 Months: No Substance History The patient denies substance abuse. Personal History Work History: disabled Relationship History: (his lives in [place], and he is refusing to allow us to contact her. He states that they have been fighting) Additional Comments: Patient was poorly cooperative with social history questions, giving vague and evasive answers. Review of Systems 10 systems were reviewed and all are negative. Examination Vital Signs Vital Signs Past 12 Hours Date Time Temp Pulse Resp B/P Pulse Ox O2 Delivery O2 Flow Rate FiO2 2/15/17 14:51 36.7 81 18 127/74 96 Room Air 12/12/16 10:07 36.8 88 18 137/78 96 Room Air 12/12/16 08:53 79 22 122/66 95 12/12/16 05:33 84 22 142/81 97 Room Air 12/12/16 03:33 94 18 146/72 97 Room Air Laboratory Results Last 24 Hours Test 12/12/16 00:00 12/12/16 02:17 12/12/16 10:22 12/12/16 13:15 Urine Opiates Screen NEG Urine Methadone, Qualitative NEG Urine Barbiturates NEG Urine Phencyclidine (PCP) Level NEG Ur Amphetamine/Methamphetamine NEG MDMA (Ecstasy) Screen NEG Urine Benzodiazepines Screen NEG Urine Cocaine Metabolite NEG Urine Marijuana (THC) NEG White Blood Count 6.87 K/uL Red Blood Count 4.07 M/uL Hemoglobin 12.6 g/dL Hematocrit 36.1 % Mean Corpuscular Volume 88.7 fL Mean Corpuscular Hemoglobin 31.0 pg Mean Corpuscular Hemoglobin Concent 34.9 g/dl Platelet Count 208 K/uL Mean Platelet Volume 10.0 fL Neutrophils (%) (Auto) 49.6 % Lymphocytes (%) (Auto) 42.4 % Monocytes (%) (Auto) 5.4 % Eosinophils (%) (Auto) 2.2 % Basophils (%) (Auto) 0.3 % Neutrophils # (Auto) 3.41 K/uL Lymphocytes # (Auto) 2.91 K/uL Monocytes # (Auto) 0.37 K/uL Eosinophils # (Auto) 0.15 K/uL Basophils # (Auto) 0.02 K/uL RDW Standard Deviation 42.3 fL RDW Coefficient of Variation 13.2 % Immature Granulocyte % (Auto) 0.1 % Immature Granulocyte # (Auto) 0.01 K/uL Prothrombin Time 10.2 SECONDS Prothromb Time International Ratio 1.0 Sodium Level 142 mmol/L 143 mmol/L Potassium Level 4.2 mmol/L 4.3 mmol/L Chloride Level 109 mmol/L 112 mmol/L Carbon Dioxide Level 25 mmol/L 24 mmol/L Anion Gap 8.0 mmol/L 7.0 mmol/L Blood Urea Nitrogen 28 mg/dl 25 mg/dl Creatinine 1.80 mg/dl 1.90 mg/dl Est Creatinine Clear Calc Drug Dose 68.8 ml/min 64.3 ml/min Estimated GFR () 54.9 51.4 Estimated GFR (Non- 47.4 44.4 BUN/Creatinine Ratio 15.7 13.1 Random Glucose 93 mg/dl 89 mg/dl Calcium Level 8.3 mg/dl 8.2 mg/dl Total Bilirubin 0.2 mg/dl Aspartate Amino Transf (AST/SGOT) 23 U/L Alanine Aminotransferase (ALT/SGPT) 33 U/L Alkaline Phosphatase 94 U/L Total Protein 6.9 gm/dl Albumin 3.5 gm/dl Globulin 3.4 gm/dl Albumin/Globulin Ratio 1.0 Thyroid Stimulating Hormone (TSH) 4.860 uIu/ml Thyroxine (T4) 9.6 mcg/dl Free Triiodothyronine 4.42 pg/ml Salicylates Level < 1.7 mg/dl Acetaminophen Level < 2 ug/ml Ethyl Alcohol mg/dL < 3.0 mg/dl Magnesium Level 1.9 mg/dl Urine Color YELLOW Urine Appearance CLEAR Urine pH 5.5 Urine Specific [place] 1.004 Urine Protein NEG Urine Glucose (UA) NEG Urine Ketones NEG Urine Occult Blood NEG Urine Nitrite NEG Urine Bilirubin NEG Urine Urobilinogen NEG Urine Leukocyte Esterase TRACE Urine WBC (Auto) 1-5 /hpf Urine RBC (Auto) 0-4 /hpf Urine Hyaline Casts (Auto) 1-5 /lpf Urine Epithelial Cells (Auto) 0-5 /lpf Urine Bacteria (Auto) NEG Mental Examination During interview pt is: alert and oriented, other (evasive and vague) Appearance: disheveled (unkempt, appears older than stated age) Eye contact is: fair Motor behavior is: no abnormal motor movements Speech: normal in rate, rhythm & volume Affect: euthymic Mood is: other ("fine") Thought process: goal directed, concrete Thought content: reality based without delusions Suicidal thought are: denied Homicidal thoughts are: denied Hallucinations: denies auditory, denies visual Cognition: language grossly intact Intelligence estimated to be: below average Insight: impaired Judgement: impaired Impression / Recommendations Impression 36-year-old male from [place] who has a history of malingering and a self- reported history of bipolar disorder and Tourette's who presented to the ER this morning, 2 days after signing out from the hospitalist service AMA, requesting admission for suicidal thoughts. Since being admitted to the medical floor, his suicidal thoughts have completely resolved, and he is now denying that he was ever suicidal. I strongly suspect malingering is his primary diagnosis, as he admits that he is tired and hungry, has no where to stay and has been trying to sleep in public places, and this is similar to his past presentations as well. Recommendations (1) Malingering The patient gives inconsistent and conflicting reports of symptoms, and has repeatedly presented with reports of auditory hallucinations and suicidal thoughts, that resolve immediately upon admission to the hospital. He has a history of malingering, and that is the most appropriate diagnosis. He is willing to talk with director social welfare about finding a way to get him back to the [facility] where he has outpatient providers, and that is my primary recommendation.
[2016-12-12 22:48] VITALS: BP 120/70; PULSE 88; TEMP 37.3; O2SAT 96
--- NOTE | 2016-12-12 23:52 | Progress Note ---
Progress Note 12/02/16 [id number] Hospitalist Progress note - S: patient denied any c/o sob, abd pain he denied suicidal ideation during my late afternoon visit he was requesting discharge "to go check on my in [place]" O: VSS, afebrile gen - nad heart - RRR, s1, s2 lungs - CTA b/l abd - soft, NT ext - no edema psych - a/o x 3 Cr 1.9 A/P: 1. suicidal ideation - resolved 2. h/o bipolar disorder 3. h/o Tourette's - no tics on exam to confirm such 4. ?malingering as per psychiatric oracle drm consultant 5. acute kidney injury vs CKD, stage unknown appreciate psych consult cont IVF repeat BMP in am; if Cr is unchanged in AM it is possible his current Cr is baseline for him social work consult to assist with dispo planning James PANCHAL MD
[2016-12-13 01:51] VITALS: O2SAT 96
--- NOTE | 2016-12-17 20:01 | Discharge Summary ---
Discharge Summary Admission Date: Dec 12, 2016 at 03:46 Discharge Date: Dec 13, 2016 Discharge Disposition: Home (left Against Medical Advice ("AMA")) Principal Diagnosis: acute kidney injury Problems/Secondary Diagnoses: 1. suicidal ideation/thoughts of dying 2. h/o bipolar disorder 3. h/o Tourette's syndrome 4. schizophrenia Immunizations: Have You Had Influenza Vaccine: Yes History of Tetanus Vaccine?: Yes History of Pneumococcal: Yes History of Hepatitis B Vaccine: Yes Consultations: psychiatry - Jenifer Del Rosario MD Medication Reconciliation Continued Medications: Fluoxetine (Prozac) 10 Mg Cap 10 MG PO DAILY Olanzapine (Zyprexa) 20 Mg Tab 20 MG PO DAILY Discharge Exam Physical Exam: General Appearance: no apparent distress ENT: pharynx normal Neck: no JVD Respiratory/Chest: lungs clear, no respiratory distress, no accessory muscle use Cardiovascular: regular rate, rhythm, no gallop, no murmur, normal peripheral pulses Abdomen / GI: normal bowel sounds, non tender, soft, no organomegaly Extremities: no pedal edema Neurologic/Psychiatric: alert, oriented x 3 Hospital Course HISTORY OF PRESENT ILLNESS: 36yo male with history of schizophrenia, bipolar disorder, and depression who was admitted to the hospital 3 days prior due to suicidal ideation and incidentally discovered acute renal failure. The patient may have been dehydrated for a period pf time due to diarrhea and poor intake leading to prerenal azotemia however the etiology of his ARF could not be confirmed. His initial creatinine was 2.5 and he was provided with IVF to achieve a goal creatinine of 1.5 per nephrology recommendation. Prior to achieving the target creatinine the patient signed out against medical advice (AMA). He has now returned stating that he left the hospital too soon but aside from continued suicidal thoughts denies any additional physical symptoms. His creatinine at the time of admission is 1.8. HOSPITAL COURSE: The patient was restarted on IV fluids for his acute renal failure / acute kidney injury. He was seen in consultation by Dr. Jenifer Del Rosario from psychiatry due to his report of suicidal thoughts. By the time psychiatry evaluated the patient he denied any suicidal or homicidal ideation. There was some concern based upon past admissions to the psychiatry unit that the patient could have had some element of malingering. His past diagnoses of bipolar disorder and schizophrenia have never been substantiated according to psychiatry. Early in the AM of 12/13/16 the patient demanded hospital discharge. He was counseled on the risks of leaving too early from the hospital but the patient refused to remain hospitalized. Against medical advice (AMA) papers were signed by the patient and he left the hospital. Total Time Spent: Less than 30 minutes This includes examination of the patient, discharge planning, medication reconciliation, and communication with other providers. Discharge Instructions Please refer to the electronic Patient Visit Report (Discharge Instructions) for additional information. Follow-Up due to patient leaving against medical advice no follow-up appointments were established
== END 2016-12-13 05:59 | disposition left against medical advice (07) | DRG 683 ==
LOC: ENRESERVTM → ENRESERVDT → EDBD 01:56 → C.EDA 01:57 → C.EDINP 03:46 → EDBEDREQ 03:52 → C.MS2W 09:38
PROVIDERS: ADMIT Internal Medicine; ATTEND Internal Medicine
DX: N17.9 Acute kidney failure, unspecified (principal); R45.851 Suicidal ideations; F20.9 Schizophrenia, unspecified; F31.9 Bipolar disorder, unspecified; F95.2 Tourette's disorder; F17.210 Nicotine dependence, cigarettes, uncomplicated; Z79.899 Other long term (current) drug therapy; Z88.8 Allergy status to other drugs, medicaments and biological substances

== ENCOUNTER 2016-12-14 23:58 | Emergency (ER) | payer OTHER ==
[~2016-12-14] VITALS: Ht 188 cm; Wt 93.0 kg
[2016-12-15 00:08] VITALS: Ht 188 cm; Wt 93.0 kg
[2016-12-15 00:46] LABS: URINE APPEARANCE CLEAR (CLEAR); URINE BILIRUBIN NEG (NEG); URINE COLOR YELLOW; URINE NITRITE NEG (NEG); URINE SPECIFIC GRAVITY 1.005 (1.000-1.030); UROBILINOGEN NEG (NEG); ZZUR CULT IF INDIC CLEAN CATCH NO
[2016-12-15 00:47] LABS: MANUAL MICROSCOPIC REQUIRED? NO; REVIEW REQ? NO
[2016-12-15 00:52] LABS: BASO % 0.2 %; BASO ABS # 0.01 K/uL (0-0.2); COMPLETE YES; EOS % 2.3 %; HEMATOCRIT 39.3 % (42-52); LYMPH % 43.6 %; LYMPH ABS # 2.63 K/uL (1.2-3.4); MEAN CELL VOLUME 88.1 fL (80-100); MEAN CORPUSCULAR HEMOGLOBIN 30.5 pg (25-34); MEAN CORPUSCULAR HGB CONC 34.6 g/dl (32-36); MEAN PLATELET VOLUME 10.5 fL (7.4-10.4); MONO % 9.6 %; NEUT % 44.3 %; PLATELET COUNT 231 K/uL (130-400); RED BLOOD COUNT 4.46 M/uL (4.7-6.1); WHITE BLOOD COUNT 6.03 K/uL (4.8-10.8)
--- NOTE | 2016-12-15 00:53 | EMERGENCY ROOM VISIT NOTE ---
History Report prepared by Lioibzita: Margo Vizcarra Under the Supervision of: Dr. Anitra Garsia M.D. First contact with patient: 00:29 Chief Complaint: MENTAL HEALTH EVALUATION Stated Complaint: MENTAL HEALTH EVALUATION History of Present Illness The patient is a 36 year old male who presents to the Emergency Room for a mental health evaluation. The patient admits to both suicidal and homicidal ideation. Today, he caught his significant other cheating on him with her ex- . He has been having thoughts of beating him up and has had "somewhat" thoughts of killing him. Currently, he has suicidal thoughts because of him and his girlfriend breaking up. He denies alcohol or recreational drug use. He is on Prozac and has been compliant but states that it is not working. Source of History: patient Onset: [employer] Position: other (psych) Timing: constant Note: Other symptoms: suicidal and homicidal ideation Review of Systems See HPI for pertinent positives & negatives. A total of 10 systems reviewed and were otherwise negative. Past Medical & Surgical Medical Problems: (1) Acute renal failure (2) Bipolar disorder (3) Depression (4) Malingering (5) Schizophrenia (6) tourette's syndrome (7) Tourette's syndrome Family History Patient reports no known family medical history. Social History Smoking Status: Never Smoker Alcohol Use: occasionally Drug Use: none Marital Status: single Housing Status: other Occupation Status: unemployed, disabled Current/Historical Medications Scheduled Fluoxetine (Prozac), 10 MG PO DAILY Olanzapine (Zyprexa), 20 MG PO DAILY Allergies Coded Allergies: Alprazolam (Unverified Allergy, Intermediate, HIVES, 12/15/16) Haloperidol (Unverified Allergy, Intermediate, HIVES, 12/15/16) Methylphenidate (Unverified Allergy, Mild, 12/15/16) Physical Exam Vital Signs Date Time Temp Pulse Resp B/P Pulse Ox O2 Delivery O2 Flow Rate FiO2 12/15/16 07:12 80 18 136/82 97 Room Air 12/15/16 01:27 77 16 141/99 97 Room Air 12/15/16 00:08 36.8 84 16 152/98 98 Room Air Physical Exam Vital signs reviewed. General: Well-appearing 36 year old male, in no significant distress. HEENT: No scleral icterus, PERRLA, neck supple. Atraumatic. Cardiovascular: Regular rate and rhythm, no extra sounds. Pulmonary: Clear to auscultation bilaterally, normal work of breathing. Abdomen: Soft, nontender, nondistended, positive bowel sounds. Musculoskeletal: Atraumatic, no peripheral edema. Neurologic: Patient awake alert and oriented x 3 Skin: Warm, dry, no rash Psych: Positive suicidal ideation, questionable homicidal ideation Medical Decision & Procedures Laboratory Results 12/15/16 00:15 Red Blood Count 4.46, Mean Corpuscular Volume 88.1, Mean Corpuscular Hemoglobin 30.5, Mean Corpuscular Hemoglobin Concent 34.6, Mean Platelet Volume 10.5, Neutrophils (%) (Auto) 44.3, Lymphocytes (%) (Auto) 43.6, Monocytes (%) (Auto) 9.6, Eosinophils (%) (Auto) 2.3, Basophils (%) (Auto) 0.2, Neutrophils # (Auto) 2.67, Lymphocytes # (Auto) 2.63, Monocytes # (Auto) 0.58, Eosinophils # (Auto) 0.14, Basophils # (Auto) 0.01 12/15/16 00:15 Test 12/15/16 00:00 12/15/16 00:15 Urine Color YELLOW Urine Appearance CLEAR (CLEAR) Urine pH 5.0 (4.5-7.5) Urine Specific [place] 1.005 (1.000-1.030) Urine Protein NEG (NEG) Urine Glucose (UA) NEG (NEG) Urine Ketones NEG (NEG) Urine Occult Blood TRACE (NEG) Urine Nitrite NEG (NEG) Urine Bilirubin NEG (NEG) Urine Urobilinogen NEG (NEG) Urine Leukocyte Esterase TRACE (NEG) Urine WBC (Auto) 5-10 /hpf (0-5) Urine RBC (Auto) 0-4 /hpf (0-4) Urine Hyaline Casts (Auto) 1-5 /lpf (0-5) Urine Epithelial Cells (Auto) 5-10 /lpf (0-5) Urine Bacteria (Auto) NEG (NEG) Urine Opiates Screen NEG (NEG) Urine Methadone, Qualitative NEG (NEG) Urine Barbiturates NEG (NEG) Urine Phencyclidine (PCP) Level NEG (NEG) Ur Amphetamine/Methamphetamine NEG (NEG) MDMA (Ecstasy) Screen NEG (NEG) Urine Benzodiazepines Screen NEG (NEG) Urine Cocaine Metabolite NEG (NEG) Urine Marijuana (THC) NEG (NEG) White Blood Count 6.03 K/uL (4.8-10.8) Red Blood Count 4.46 M/uL (4.7-6.1) Hemoglobin 13.6 g/dL (14.0-18.0) Hematocrit 39.3 % (42-52) Mean Corpuscular Volume 88.1 fL (80-100) Mean Corpuscular Hemoglobin 30.5 pg (25-34) Mean Corpuscular Hemoglobin Concent 34.6 g/dl (32-36) Platelet Count 231 K/uL (130-400) Mean Platelet Volume 10.5 fL (7.4-10.4) Neutrophils (%) (Auto) 44.3 % Lymphocytes (%) (Auto) 43.6 % Monocytes (%) (Auto) 9.6 % Eosinophils (%) (Auto) 2.3 % Basophils (%) (Auto) 0.2 % Neutrophils # (Auto) 2.67 K/uL (1.4-6.5) Lymphocytes # (Auto) 2.63 K/uL (1.2-3.4) Monocytes # (Auto) 0.58 K/uL (0.11-0.59) Eosinophils # (Auto) 0.14 K/uL (0-0.5) Basophils # (Auto) 0.01 K/uL (0-0.2) RDW Standard Deviation 42.4 fL (36.4-46.3) RDW Coefficient of Variation 13.2 % (11.5-14.5) Immature Granulocyte % (Auto) 0.0 % Immature Granulocyte # (Auto) 0.00 K/uL (0.00-0.02) Anion Gap 11.0 mmol/L (3-11) Est Creatinine Clear Calc Drug Dose 66.0 ml/min Estimated GFR () 54.9 Estimated GFR (Non- 47.4 BUN/Creatinine Ratio 12.0 (10-20) Calcium Level 9.1 mg/dl (8.5-10.1) Total Bilirubin 0.2 mg/dl (0.2-1) Direct Bilirubin < 0.1 mg/dl (0-0.2) Aspartate Amino Transf (AST/SGOT) 32 U/L (15-37) Alanine Aminotransferase (ALT/SGPT) 38 U/L (12-78) Alkaline Phosphatase 107 U/L (45-117) Total Protein 7.3 gm/dl (6.4-8.2) Albumin 3.7 gm/dl (3.4-5.0) Salicylates Level < 1.7 mg/dl (2.8-20) Acetaminophen Level < 2 ug/ml (10-30) Ethyl Alcohol mg/dL < 3.0 mg/dl (0-3) Laboratory results per my review. ED Course 0044: Past medical records reviewed. The patient was evaluated in room A6. A complete history and physical examination was performed. 07: The patient was signed out to Dr. Castaneda at the change of shift pending bed search. Medical Decision Differential diagnosis: Etiologies such as mood disorder, infection, hypoglycemia, electrolyte abnormalities, cardiac sources, intracerebral event, toxicologic, neurologic, as well as others were entertained. This patient was evaluated and appeared to be in no significant distress. Patient was medically cleared and evaluated by mental health. The patient is awaiting voluntary placement in bed search. Case has been signed out to Dr. Castaneda at the change of shift, please see his notes for further detail. Impression Primary Impression: Suicidal ideation Scribe Attestation The scribe's documentation has been prepared under my direction and personally reviewed by me in its entirety. I confirm that the note above accurately reflects all work, treatment, procedures, and medical decision making performed by me. Departure Information Dispostion Still a Patient (signed out to Dr. Castaneda) Referrals No Doctor, Assigned (PCP) Patient Instructions My [facility]
[2016-12-15 01:03] LABS: BENZODIAZEPINE, URINE NEG (NEG); COCAINE,URINE NEG (NEG); PHENCYCLIDINE, URINE NEG (NEG)
[2016-12-15 01:36] LABS: ALT/SGPT 38 U/L (12-78); AST/SGOT 32 U/L (15-37); BLOOD UREA NITROGEN 22 mg/dl (7-18); CALCIUM 9.1 mg/dl (8.5-10.1); CARBON DIOXIDE 23 mmol/L (21-32); CHLORIDE 108 mmol/L (98-107); GLUCOSE 91 mg/dl (70-99); POTASSIUM 3.8 mmol/L (3.5-5.1); SODIUM 142 mmol/L (136-145)
[2016-12-15 01:39] LABS: ALKALINE PHOSPHATASE 107 U/L (45-117)
[2016-12-15 01:40] LABS: ACETAMINOPHEN < 2 ug/ml (10-30)
--- NOTE | 2016-12-15 10:08 | EMERGENCY ROOM VISIT NOTE ---
ED Visit Note 36-year-old male was signed off to me at change of shift from Dr. Garsia. Patient was awaiting psychiatric bed placement. I reexamined the patient at 1001. The patient remained stable. The patient states that he still feels somewhat suicidal.
[2016-12-15 12:40] VITALS: BP 148/88; PULSE 75; TEMP 36.8; O2SAT 97
[2016-12-20 01:36] LABS: SYNTHETIC CANNABINOIDS QL URIN NEGATIVE (Negative)
== END 2016-12-15 12:41 ==
LOC: EDBD 23:58 → C.EDA 12-15
DX: R45.851 Suicidal ideations (principal); Z79.899 Other long term (current) drug therapy; F31.9 Bipolar disorder, unspecified; F20.9 Schizophrenia, unspecified; F95.2 Tourette's disorder